=== PATIENT | male | born 1950 | race Caucasian/White ===

== ENCOUNTER 2016-05-31 02:51 | Inpatient (IN) | payer MEDICARE, OTHER ==
[2016-05-31] VITALS (8 sets, daily range): BP systolic 129–183; BP diastolic 66–112
[~2016-05-31] VITALS: Ht 172.7 cm; Wt 57.3 kg
--- OUTSIDE RECORDS SUMMARY | 2016-05-31 02:56 | XMS REPORT | Continuity of Care Document ---
Author Author [facility] Organization [facility] Address Unknown Phone Unavailable Care Team Providers Care Yoga Teacher Name Role Phone Joshua Deondre PCP [phone] Source Comments Some departments are not documenting in the electronic medical record. If you do not see the information that you expected, contact Release of Information in the Health Information Management department at [phone] for further assistance in locating additional records.[facility] Active Allergies and Adverse Reactions No Known Allergies Current Medications Prescription Sig. Disp. Refills Start End Date Status Date ALBUTEROL IN Inhale by mouth As Needed 06/10/19 Active 08 ATENOLOL PO Take by mouth. Ordered Active daily Patient stopped taking because he feels he can take it prn LYRICA PO Take by mouth As Needed Active morphine IR (MS IR) 15 mg Take 1-3 Tabs by mouth 150 0 03/05/20 Active tablet Every 2 Hours as needed 08 for Pain. docusate (COLACE) 100 mg Take 1 Cap by mouth Twice 60 1 03/05/20 Active capsule Daily. 08 morphine SR (MS CONTIN) Take 2 Tabs by mouth 82 0 03/05/20 Active 15 mg tablet Every 8 Hours. 08 Active Problems Problem Noted Date Degenerative disc disease 03/05/2008 Scoliosis (and kyphoscoliosis), idiopathic 02/23/2008 Cervical spinal stenosis 05/03/2007 Coagulation defects complicating , childbirth, or the puerperium, 05/03/2007 unspecified as to episode of care or not applicable(649.30) Social History Tobacco Use Types Packs/Day Years Used Date Never Assessed Last Filed Vital Signs Vital Sign Reading Time Taken Blood Pressure 153/94 03/05/2008 5:00 AM CDT Pulse 94 03/05/2008 5:00 AM CDT Temperature 37.3 C (99.1 F) 03/05/2008 5:00 AM CDT Respiratory Rate - - Height 1.753 m (5' 9") 02/27/2008 8:30 PM CDT Weight 66 kg (145 lb 8.1 oz) 02/27/2008 8:30 PM CDT Body Mass Index 21.48 02/27/2008 8:30 PM CDT Oxygen Saturation 93% 03/05/2008 1:05 PM CDT Plan of Care Health Maintenance Due Date Last Done Comments Physical (Comprehensive) 1959 Exam Pertussis Vaccine 1963 Tetanus Vaccine 1969 Colorectal Cancer 2002 Screening Shingles Vaccine 2012 Influenza Vaccine 01/30/2016 Results from Last 3 Months Not on file
--- OUTSIDE RECORDS SUMMARY | 2016-05-31 02:56 | XMS REPORT | Continuity of Care Document ---
Author Author [facility] Organization [facility] Address Unknown Phone Unavailable Care Team Providers Care Casino Host Name Role Phone Joshua Deondre PCP [phone] Source Comments Some departments are not documenting in the electronic medical record. If you do not see the information that you expected, contact Release of Information in the Health Information Management department at [phone] for further assistance in locating additional records.[facility] Active Allergies and Adverse Reactions No Known [...]
[2016-05-31] MEDS ORDERED: ALBUTEROL/IPRATROPIUM 3MG-0.5MG/3ML (DUONEB) NEB VIAL INH ONE (03:10)
[2016-05-31] MEDS ORDERED: PRED20TA PO (03:13)
[2016-05-31] MEDS ORDERED: DOXY100C2 PO (03:13)
[2016-05-31] MEDS ORDERED: LOSA100T8 PO (03:13)
[2016-05-31] MEDS ORDERED: ALBU8.5H2 IH (03:13)
[2016-05-31] MEDS ORDERED: ALB0.5V INH (03:13)
[2016-05-31] MEDS ORDERED: MORP30TA PO (03:13)
--- NOTE | 2016-05-31 03:16 | NUR ---
HAS UMB HERNIA AND INGUINAL HERNIA ON R SIDE, HURTS WHEN HE COUGHS
[2016-05-31] MEDS: SODIUM CHLORIDE FLUSH 10 ML SYR IV PRN ×4 (03:27→18:41)
[2016-05-31 03:35] LABS: MEAN CORPUSCULAR VOLUME 90 FL (80-100); MEAN PLATELET VOLUME 8.7 FL (6.0-9.5); PLATELET COUNT 440 10^3uL (150-450); WHITE BLOOD COUNT 12.22 10^3uL (4.0-11.0)
[2016-05-31 03:44] LABS: ALBUMIN 4.2 g/dL (3.4-5.0); ANION GAP 14.4 MEQ/L (3-15)
[2016-05-31 03:47] LABS: BAND NEUTROPHILS % 0 % (0-6); LYMPHOCYTES # 1.5 #; MEAN CORPUSCULAR HEMOGLOBIN 32.1 PG (26.0-34.0); MEAN CORPUSCULAR HGB CONC 35.8 g/dL (31.0-37.0); MONOCYTES # 1.7 #; MONOCYTES % 14 % (3-11); SEGMENTED NEUTROPHILS % 73 % (51-67)
[2016-05-31 03:48] LABS: EOSINOPHILS % 1 % (0-4); RBC MORPH NORMAL (NORMAL); TOTAL CELLS COUNTED 100
--- NOTE | 2016-05-31 05:00 | NUR ---
DR PUENTES NOTIFIED PER DR HOPPER POSSIBLE ADMIT
[2016-05-31] MEDS ORDERED: HYDROcodone/APAP 5 MG/325 MG (NORCO) TAB PO ONE (05:15)
[2016-05-31] MEDS ORDERED: HYDROmorphone 2 MG/ML (DILAUDID) 1 ML SYRINGE IV ONE (05:15)
--- NOTE | 2016-05-31 05:19 | NUR ---
NOTIFIED ORDERLIES TEACHER OF PT ADMIT
[2016-05-31] MEDS ORDERED: ONDANSETRON 2 MG/ML (Z0FRAN) 2 ML VIAL IV ONE (05:20)
[2016-05-31] MEDS ORDERED: ONDANSETRON 2 MG/ML (Z0FRAN) 2 ML VIAL ONE (05:20)
--- NOTE | 2016-05-31 05:38 | NUR ---
Pt arrived to room 317 via wheelchair, accompanied by Diane VUONG. Alert and oriented x4, Resp are slightly labored, SOA with exertion, diminished bases bilaterally. HRRR, BS are active x 4 quadrant. SL to left wrist, no redness, swelling, or s/s of infection noted at this time. Pt reports he has been helping a neighbor pack, and he started becoming short of air, took a neb treatment at home and it did not help, so he came in to the ER. Denies pain or discomfort at this time. Currently resting in bed asleep, call light in reach, will continue to monitor.
--- NOTE | 2016-05-31 07:40 | Diagnostic Imaging Report ---
INDICATION: Shortness of breath Portable chest 3:40 AM Heart size and pulmonary vascularity are normal. Lungs are clear. There are no effusions or pneumothoraces. IMPRESSION: No acute abnormalities in the chest Dictated by: Dictated on workstation # [id number]
--- NOTE | 2016-05-31 07:48 | History and Physical (E) ---
History & Physical PCP: Richard Castellano MD CC Dyspnea HPI Mr. Biggs is a 65 year old male who presents to the ED overnight with a week history of shortness of air and dyspnea. He has a history of emphysema. The patient states that he has been cleaning out a home that had a lot of pets ( cats, rabbits, etc...) and this has worsened his breathing situation. He is reporting a persistent cough that is productive of clear sputum. He was evaluated this week for his respiratory conditions and started on doxycycline. However this weekend he has continued to worsen. Overnight he woke up and used his albuterol nebulizer with minimal relief. He also used his albuterol inhaler with little improvement, therefore he called EMS to bring him into the ED. In the ED, his sats were found to be in the upper 80's to low 90's. CXR did not show any pneumonia. WBC's were mildly elevated. No other abnormalities noted. Admission was requested. Upon arrival to the floor, the patient the patient is in pain, he is wanting his narcotics for his back pain. He is on oxygen on the floor. He is asking for a nicotine patch. He reports a lot of stress which has led to increased smoking. He is also reporting fatigue from being up all night. PMH Chronic pain (morphine) COPD (albuterol and prednisone) HTN (losartan) PSH Back surgery x 7 Splenectomy Appendectomy Partial nephrectomy These surgeries were due to football injuries. ALLERGIES: NKDA Please see list at end of report. HOME MEDICATIONS: Albuterol Sulfate 2.5 MG INH PRN Albuterol Sulfate HFA 8.5 GM IH BID Doxycycline 100 MG PO BID--recently prescribed by Dr. Castellano. Losartan 100 MG PO DAILY Morphine 30 MG PO TID Prednisone 20 MG PO UD--recently prescribed by Dr. Castellano Please see list at end of report. FH Parents--Father with heart disease. Mother of an aneurysm. Siblings--Brother from an MT. Sister is alive and healthy. Children--Healthy SH Tobaccoism--1ppd. Patient is trying to stop smoking. Started smoking age 19. Alcohol use--None. Living situation--Home with . One robbins retriever at home. Pigs at home. Chickens, cat and a duck. 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 Moved back to [place] in the . CODE STATUS Full code. ROS CONSTITUTION: Denies weight loss or gain. Denies fever or chills. HEENT: No change in vision or hearing. No sores in mouth, sore throat. CV: No chest pain, palpitations. PULM: Cough, SOA, and dyspnea per HPI. GI: No upset stomach, nausea, vomiting, constipation, or diarrhea. No blood in stool. : No dysuria. No blood in urine. MS: Patient has chronic pain, but lately has had feet and leg cramps. Also some side cramps. This has been happening more with coughing. NEURO: No numbness or tingling. No weakness. INTEG: No rashes, lesions, or sores. ENDO: Cold intolerance with illness. HEME/LYMPH: No easy bruising or bleeding. No swollen glands. PSYCH: No change in mood or behavior. Increased stress, has led to some stress , he did discuss with Dr. Castellano who prescribed SSRI, that the patient did not like. OBJECTIVE Vital Signs Date Time Temp Pulse Resp B/P Pulse Ox O2 Delivery O2 Flow Rate FiO2 05/31/16 06:08 97.9 87 18 92 Room air 05/31/16 03:30 1.5 05/31/16 02:52 178/95 GEN: Awake and alert. Mild respiratory distress. HEENT: EOMI, PERRL, moist oral mucosa. Nasal cannula in place. CV: RRR. LUNGS: Diminished throughout, expiratory wheezing. Mildly labored respirations. ABD: Normal bowel sounds. Soft. Mildly tender to palpation. EXTR: No edema to extremities. INTEG: No rash. NEURO: No focal motor neuro deficit. LABS CBC BMP Last 24 Hrs 05/31/16 03:15 Laboratory Results Past 24 Hrs 05/31/16 03:15: Absolute Band Neutrophils 0.0, Alanine Aminotransferase (ALT/SGPT) 34, Albumin 4.2, Albumin/Globulin Ratio 1.500, Alkaline Phosphatase 73, Anion Gap 14.4, Aspartate Amino Transf (AST/SGOT) 38, BUN/Creatinine Ratio 27, Band Neutrophils % 0, Basophils # (Auto) , Basophils # (Manual) 0.0, Basophils % (Manual) 0, Basophils (%) (Auto) , Blood Morphology Comment Normal, Blood Urea Nitrogen 15, Calcium Level 9.1, Calcium/Ionized Calcium Ratio 4.0, Calculated Osmolality 259 , Carbon Dioxide Level 27, Chloride Level 96, Creatinine 0.55, Differential Total Cells Counted 100, Eosinophils # 0.1, Eosinophils # (Auto) , Eosinophils % (Manual) 1, Eosinophils (%) (Auto) , Estimat Glomerular Filtration Rate 182.0 , Estimated GFR (Non- 150.5, Glucose Level 107, Hematocrit 39.10 , Hemoglobin 14.0, Lymphocytes # 1.5, Lymphocytes # (Auto) , Lymphocytes % ( Manual) 12, Lymphocytes (%) (Auto) , Mean Corpuscular Hemoglobin 32.1, Mean Corpuscular Hemoglobin Concent 35.8, Mean Corpuscular Volume 90, Mean Platelet Volume 8.7, Monocytes # 1.7, Monocytes # (Auto) , Monocytes % (Manual) 14, Monocytes (%) (Auto) , IK-Xnk-M-Type Natriuretic Peptide 408, Neutrophils # 8.9 , Neutrophils # (Auto) , Neutrophils (%) (Auto) , Platelet Count 440, Potassium Level 4.5, Prothromb Time International Ratio 1.0, Prothrombin Time 11.1, Red Blood Count 4.36, Red Cell Distribution Width 14.1, Segmented Neutrophils % 73, Sodium Level 133, Total Bilirubin 0.5, Total Protein 7.0, White Blood Count 12.22 05/31/16 05:07: Adenovirus (PCR) Negative, Bordetella parapertussis DNA (PCR) Negative, Chlamydophila pneumoniae (PCR) Negative, Coronavirus Type 229E (PCR) Negative, Coronavirus Type HKU1 (PCR) Negative, Coronavirus Type NL63 (PCR) Negative, Coronavirus Type OC43 (PCR) Negative, Enterovirus/Rhinovirus (PCR) Negative, Human Metapneumovirus (PCR) Negative, Influenza Type A (H1) (PCR) Negative, Influenza Virus Type B (PCR) Negative, Mycoplasma pneumoniae (PCR) Negative, Parainfluenza Type 1 (PCR) Negative, Parainfluenza Type 2 (PCR) Negative, Parainfluenza Type 3 (PCR) Negative, Parainfluenza Type 4 (PCR) Negative, Respiratory Syncytial Virus (PCR) Positive MICRO None IMAGING 05.31.16 CXR Evidence of COPD. No evidence of pneumonia. Awaiting formal read. ASSESSMENT/PLAN URI Positive for RSV. Supportive measures. Continue duonebs, albuterol, doxy and prednisone. Will add guaifenesin for cough and phenergan with codeine. Acute hypoxic respiratory failure Currently requiring oxygen. Due to URI with COPD exacerbation. COPD exacerbation Due to URI. At home has been on albuterol, prednisone and doxycycline. Will add QID duonebs and continue prn albuterol. Continue steroids and doxy here. Adding guaifenesin for cough and phenergan with codeine. History of heart disease in family, will get a troponin. Anxiety and depression I believe this is chronic for this patient, however this was attempted to be treated by PCP, the patient did not like side effects of the medication. Will provide ativan here for anxiety to help with breathing. Chronic pain Due to multiple back surgeries. Continue home morphine and norco. HTN Continue home losartan. Gave a prn hydralazine for SBP's, however patient had an adverse reaction of anxiety and shortness of air. Will use metoprolol in the future. Systolic and diastolic CHF LVEF 45-50%, seen on echo done in 2014. FEN No fluids at this time. Mild hyponatremia. Monitor closely. Diet as tolerated. Code status Full code. DVT proph Ambulation. Dispo Inpatient as patient is requiring oxygen at this time. Allergies/Home Medications Allergies: Coded Allergies: No Known Allergies (Verified Allergy, Unknown, 05/31/16) Reported Home Medications Scheduled Albuterol Sulfate (Albuterol Sulfate) 2.5 MG INH NEEDED (Reported) Albuterol Sulfate (Proair HFA) 8.5 GM IH BID (Reported) Doxycycline Hyclate (Doxycycline Hyclate) 100 MG PO BID (Reported) Losartan Potassium (Losartan Potassium) 100 MG PO DAILY (Reported) Morphine Sulfate (Morphine) 30 MG PO TID (Reported) Prednisone (Prednisone) 20 MG PO UD (Reported) Copies to: End of Report . SAMANTA PUENTES MD May 31, 2016 07:48
--- NOTE | 2016-05-31 08:35 | NUR ---
Morphine Er 30 mg given po for pain per request. c/o abd pain related to frequent coughing, and lower back pain - chronic. Pain 9/10. States resp. are "tighter" and is having more trouble breathing. O2 sats 94%.
[2016-05-31] MEDS: morphine ER 30 MG (MS CONTIN) TAB PO SCH ×3 (08:37→18:21)
--- NOTE | 2016-05-31 09:00 | NUR ---
continues to complain of pain. States needs Hydrocodone usually takes at home. States pain 02/07. BP - 167/107. pulse - 95, O2 sat - 94%. Dr. Bills texted above info.
--- NOTE | 2016-05-31 09:35 | NUR ---
"Can't breathe - when are they going to do something" - VS 98.3 - 181/103 - 99 - 20 )2 sat 93% - "I've never had this before my breathing"
[2016-05-31] MEDS: ALBUTEROL/IPRATROPIUM 3MG-0.5MG/3ML (DUONEB) NEB VIAL INH SCH ×3 (09:47→20:03)
[2016-05-31] MEDS ORDERED: hydrALAZINE 20 MG/ML (APRESOLINE) 1 ML VIAL IV ONE (09:50)
--- NOTE | 2016-05-31 09:50 | NUR ---
c/o cramps to daniel low back and in abdomen - "Oh God it is so sharp and excruciating when they hit" - LS dim throughout on inspiration and expiration - prolonged expirations with expiratory wz throughout
--- NOTE | 2016-05-31 09:52 | NUR ---
RT TX dueneb in progress
--- NOTE | 2016-05-31 09:56 | NUR ---
Reports "breathing better" - "gotta calm down" - pain of cramps "10" when coughs
--- NOTE | 2016-05-31 09:58 | NUR ---
Dr Bills in room
[2016-05-31] MEDS: DOXYCYCLINE 100 MG (VIBRAMYCIN) TABLET PO SCH ×2 (10:02→22:06)
[2016-05-31] MEDS: HYDROcodone/APAP 10 MG/325 MG (NORCO) TAB PO PRN ×4 (10:03→22:22)
--- NOTE | 2016-05-31 10:05 | NUR ---
Lortab 10mg 1 tab po for cramping pain "I only want to take 1 tab right now" - vibramycin po now dose
--- NOTE | 2016-05-31 10:12 | NUR ---
[id number] Apresoline 20 mg slow IV push over 3 minutes - follow by 10 mL flush
--- NOTE | 2016-05-31 10:22 | NUR ---
BP 183/99 - Dr Bills remains in room - "I can't breathe" - RT called for albuterol TX
[2016-05-31] MEDS ORDERED: meTOprolol 5 MG/5 ML (LOPRESSOR) VIAL IV PRN (10:25)
[2016-05-31] MEDS: ALBUTEROL 0.083% NEB SOLUTION 2.5 MG/3 ML VIAL INH PRN (10:26)
--- NOTE | 2016-05-31 10:30 | NUR ---
RT TX in progress
--- NOTE | 2016-05-31 10:36 | NUR ---
168/92 - O2 sat 96% on 3 L per nc c humidification
--- NOTE | 2016-05-31 10:37 | NUR ---
"I can't breathe" - "I feel like I am going to pass out" - "I'm going to take this other pain pill" - Lortab 10 mg 1 tab po for c/o cramping pain
[2016-05-31] MEDS: LORazepam 2 MG/ML (ATIVAN) 1 ML VIAL IV PRN ×2 (10:43→18:40)
--- NOTE | 2016-05-31 10:54 | NUR ---
Ativan 0.5 mg slow IV push over 3 minutes for anxiety
--- NOTE | 2016-05-31 11:00 | NUR ---
Sitting on bed edge leaning on bed side table - eyes closed - "a little better" - telemetry applied - O2 sat 96% on 3 L per nc
--- NOTE | 2016-05-31 11:55 | NUR ---
Asleep lying on L side c HOB up 45 degrees - Telemetry ST rate 100-110s
--- NOTE | 2016-05-31 14:38 | NUR ---
Hydrocodone 10 mg 2 tabs given for pain 10/07. C/o COTTER, and back pain. Slept awhile after lunch.
[2016-05-31] MEDS ORDERED: ACHYD1T PO (14:58)
[2016-05-31] MEDS ORDERED: MORP30TA60 PO (14:59)
--- NOTE | 2016-05-31 15:08 | NUR ---
Medication reconciliation completed using pill bottles from [facility] and information from Rasheeda who read some bottles to me from home.
[2016-05-31] MEDS: GUAIFENESIN 200 MG PO PRN (15:42)
--- NOTE | 2016-05-31 18:30 | NUR ---
Hydrocodone 10 mg 2 tabs given for COTTER pain - 01/07. Asking for a heating pad for neck. also states uses Ensure at home. She is wondering if a nicoderm patch would be a good idea. states is going to throw away his cigarettes at home.
[2016-05-31] MEDS: NICOTINE 21 MG (NICODERM) PATCH TD SCH (22:06)
[2016-05-31] MEDS: PROMETHAZINE/CODEINE SYRUP 6.25MG-10MG/5ML (PHENERGAN W/COD) UDC PO PRN (22:21)
[2016-06-01 00:16] VITALS: BP 120/68
[2016-06-01] MEDS: LORazepam 2 MG/ML (ATIVAN) 1 ML VIAL IV PRN ×3 (02:04→18:10)
[2016-06-01] MEDS: SODIUM CHLORIDE FLUSH 3 ML SYR IV PRN ×5 (02:09→18:11)
[2016-06-01] MEDS: HYDROcodone/APAP 10 MG/325 MG (NORCO) TAB PO PRN ×2 (02:39→06:49)
[2016-06-01] MEDS: ALBUTEROL/IPRATROPIUM 3MG-0.5MG/3ML (DUONEB) NEB VIAL INH SCH ×4 (02:50→20:31)
--- NOTE | 2016-06-01 03:20 | NUR ---
Pt c/o of increasing pain and difficulty breathing. Have exhausted PRNs. Dr Bills notified; orders received.
[2016-06-01] MEDS: SODIUM CHLORIDE FLUSH 10 ML SYR IV PRN ×2 (03:30→21:29)
[2016-06-01] MEDS: morphine INJ 4 MG/ML 1 ML SYRINGE IV PRN ×3 (03:30→15:50)
[2016-06-01 04:23] VITALS: BP 138/70
[2016-06-01] MEDS: GUAIFENESIN 200 MG PO PRN (05:35)
[2016-06-01] MEDS: morphine ER 30 MG (MS CONTIN) TAB PO SCH ×3 (05:35→21:29)
--- NOTE | 2016-06-01 06:02 | NUR ---
Pt is able to breathe easier after 4mg IV morphine given per PRN order. Resp still labored on 3L oxygen per nc, but pt states that he feels a "little bit better." SL intact.
[2016-06-01 06:30] LABS: MEAN CORPUSCULAR HGB CONC 34.3 g/dL (31.0-37.0); MEAN CORPUSCULAR VOLUME 93 FL (80-100); MEAN PLATELET VOLUME 9.1 FL (6.0-9.5); PLATELET COUNT 412 10^3uL (150-450); WHITE BLOOD COUNT 10.47 10^3uL (4.0-11.0)
[2016-06-01 06:45] LABS: ALBUMIN 3.7 g/dL (3.4-5.0); ANION GAP 13.2 MEQ/L (3-15); CALCULATED IONIZED CALCIUM 4.3 mg/dL (3.8-4.6); TOTAL PROTEIN 6.1 g/dL (6.4-8.5)
[2016-06-01 07:27] LABS: MEAN CORPUSCULAR HEMOGLOBIN 31.8 PG (26.0-34.0)
[2016-06-01 07:38] LABS: BAND NEUTROPHILS % 0 % (0-6); SEGMENTED NEUTROPHILS % 69 % (51-67)
[2016-06-01 07:39] LABS: EOSINOPHILS % 0 % (0-4); LYMPHOCYTES # 1.1 #; MONOCYTES # 1.8 #; MONOCYTES % 18 % (3-11); RBC MORPH NORMAL (NORMAL); TOTAL CELLS COUNTED 100
[2016-06-01 08:07] VITALS: BP 145/89
[2016-06-01] MEDS: DOXYCYCLINE 100 MG (VIBRAMYCIN) TABLET PO SCH ×2 (09:53→21:29)
[2016-06-01] MEDS: NICOTINE 21 MG (NICODERM) PATCH TD SCH (09:54)
--- NOTE | 2016-06-01 10:00 | NUR ---
Reports back pain continues at 8:10. Requests more pain med. Informed to early for more pain med. Warm blanket to back offered and accepted.
--- NOTE | 2016-06-01 10:19 | NUR ---
NUTRITION ASSESSMENT Level 1 Patient: Bernabe Biggs Age/Sex: 65/M Date Screened: 06-01-16 Weight: 121.4#/55.2 kg Height: 68 inches Primary Diagnosis: COPD Diet Order: regular Relevant labs: sodium 132, glucose 100 Food allergies: N Nutrition Assessment Criteria Age over 80: N Body Mass Index (BMI) under 19: 6 points Admission Screening Indicates Risk? N Moderate/High Risk Diagnosis: 3 points TPN or PPN: N NPO or clear liquid diet: N Serum Glucose <70 or >180: N Hgb A1c >6.7: N/A Total: 9 points Risk Screen: __ Patient at low nutritional risk based on available data; reevaluate in 5-7 days __ Patient at moderate nutritional risk based on available data; reevaluate in 3-5 days _X_ Patient at high nutritional risk; complete Nutrition Assessment within 48 hours of admission.
--- NOTE | 2016-06-01 10:50 | NUR ---
Attempted to give pain med. Tylenol level reached and no med given.Dr. Guzman notified of patient's uncontrolled pain. Patient and his spouse informed will be in to see him and discuss pain control.
--- NOTE | 2016-06-01 11:11 | NUR ---
Patient request med for anxiety. States when he is in pain he becomes anxious. Amb about room. Med given.
--- NOTE | 2016-06-01 11:41 | NUR ---
Resting with eyes closed.Resp regular. Calm. Spouse at bedside.
[2016-06-01 11:48] VITALS: BP 159/84
--- NOTE | 2016-06-01 14:04 | NUR ---
States feel like he can't get his breath.Pain debbie was given for back pain as scheduled. O2 sat 95% on 2l/NC. p- 115. Lungs wheezes bilat. Amb from bed to chair. Sitting up in chair at this time. RT notified. Patient informed RT in ED at this time but was made aware of his complaint.
--- NOTE | 2016-06-01 14:35 | NUR ---
States still can't get deep breath. Resp 20. SKin w/p/d. Resp at bedside.
[2016-06-01 15:29] VITALS: BP 128/83
[2016-06-01 19:43] VITALS: BP 169/71
[2016-06-01] MEDS ORDERED: MAGNESIUM 1 GM/100 ML IVPB 100 ML IV ONE (20:15)
--- NOTE | 2016-06-01 20:24 | Progress Note (E) ---
Progress Note SUBJECTIVE Improving but slowly. Remains afebrile. Tachy at times. Oxygen remains at 2 L. 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 Much dust/dirt and foul odors in the home along with much cat waste. Discussed this as a likely trigger for his symptoms and advised he not work in that environment without a respiratory. OBJECTIVE Vital Signs Date Time Temp Pulse Resp B/P Pulse Ox O2 Delivery O2 Flow Rate FiO2 06/01/16 19:43 99.1 108 18 169/71 94 Room air 05/31/16 03:30 1.5 I & O 05/31/16 06/01/16 Cumulative From/Thru 19:00 07:00 05/31/16 02:52 - 06/01/16 06:14 Intake Total 400 ml 1187 ml 1587 ml Output Total 600 ml 1600 ml 2800 ml Balance -200 ml -413 ml -1213 ml GEN: Tired appearing but oriented, Speaks in short sentences. HEENT: EOMI, clear sclerae, mildly dry oral mucosa. CV: Tachy without significant murmur. PULM: Tight with expiratory wheezes. ABD: Flat, soft, NT/ND with normal bowels ounds. EXTR: Warm, dry, well-perfused. INTEG: Age related changes. NEURO: No focal motor neuro deficit. Lab-Past 14 Days, 35 Results 05/31/16 03:15: Absolute Band Neutrophils 0.0, Alanine Aminotransferase (ALT/SGPT) 34, Albumin 4.2, Albumin/Globulin Ratio 1.500, Alkaline Phosphatase 73, Anion Gap 14.4, Aspartate Amino Transf (AST/SGOT) 38H, BUN/Creatinine Ratio 27H, Band Neutrophils % 0, Basophils # (Auto) , Basophils # (Manual) 0.0, Basophils % ( Manual) 0, Basophils (%) (Auto) , Blood Morphology Comment Normal, Blood Urea Nitrogen 15, Calcium Level 9.1, Calcium/Ionized Calcium Ratio 4.0, Calculated Osmolality 259L, Carbon Dioxide Level 27, Chloride Level 96L, Creatinine 0.55L, Differential Total Cells Counted 100, Eosinophils # 0.1, Eosinophils # (Auto) , Eosinophils % (Manual) 1, Eosinophils (%) (Auto) , Estimat Glomerular Filtration Rate 182.0, Estimated GFR (Non- 150.5, Glucose Level 107, Hematocrit 39.10, Hemoglobin 14.0, Lymphocytes # 1.5, Lymphocytes # (Auto) , Lymphocytes % (Manual) 12L, Lymphocytes (%) (Auto) , Mean Corpuscular Hemoglobin 32.1, Mean Corpuscular Hemoglobin Concent 35.8, Mean Corpuscular Volume 90, Mean Platelet Volume 8.7, Monocytes # 1.7, Monocytes # (Auto) , Monocytes % (Manual) 14H, Monocytes (%) (Auto) , YX-Miu-M-Type Natriuretic Peptide 408H, Neutrophils # 8.9, Neutrophils # (Auto) , Neutrophils (%) (Auto) , Platelet Count 440, Potassium Level 4.5, Prothromb Time International Ratio 1.0, Prothrombin Time 11.1, Red Blood Count 4.36L, Red Cell Distribution Width 14.1, Segmented Neutrophils % 73H, Sodium Level 133L, Total Bilirubin 0.5#, Total Protein 7.0, Troponin I 0.015, White Blood Count 12.22H 05/31/16 05:07: Adenovirus (PCR) Negative, Bordetella parapertussis DNA (PCR) Negative, Chlamydophila pneumoniae (PCR) Negative, Coronavirus Type 229E (PCR) Negative, Coronavirus Type HKU1 (PCR) Negative, Coronavirus Type NL63 (PCR) Negative, Coronavirus Type OC43 (PCR) Negative, Enterovirus/Rhinovirus (PCR) Negative, Human Metapneumovirus (PCR) Negative, Influenza Type A (H1) (PCR) Negative, Influenza Virus Type B (PCR) Negative, Mycoplasma pneumoniae (PCR) Negative, Parainfluenza Type 1 (PCR) Negative, Parainfluenza Type 2 (PCR) Negative, Parainfluenza Type 3 (PCR) Negative, Parainfluenza Type 4 (PCR) Negative, Respiratory Syncytial Virus (PCR) Positive*A 06/01/16 05:55: Absolute Band Neutrophils 0.0, Alanine Aminotransferase (ALT/SGPT) 34, Albumin 3.7, Albumin/Globulin Ratio 1.541, Alkaline Phosphatase 66, Anion Gap 13.2, Aspartate Amino Transf (AST/SGOT) 33, BUN/Creatinine Ratio 32H, Band Neutrophils % 0, Basophils # (Auto) , Basophils # (Manual) 0.0, Basophils % ( Manual) 0, Basophils (%) (Auto) , Blood Morphology Comment Normal, Blood Urea Nitrogen 19H, Calcium Level 9.0, Calcium/Ionized Calcium Ratio 4.3, Calculated Osmolality 258L, Carbon Dioxide Level 28, Chloride Level 96L, Creatinine 0.59L, Differential Total Cells Counted 100, Eosinophils # 0.0, Eosinophils # (Auto) , Eosinophils % (Manual) 0, Eosinophils (%) (Auto) , Estimat Glomerular Filtration Rate 167.9, Estimated GFR (Non- 138.7, Glucose Level 100, Hematocrit 41.40, Hemoglobin 14.2, Lymphocytes # 1.1, Lymphocytes # (Auto) , Lymphocytes % (Manual) 11L, Lymphocytes (%) (Auto) , Mean Corpuscular Hemoglobin 31.8, Mean Corpuscular Hemoglobin Concent 34.3, Mean Corpuscular Volume 93, Mean Platelet Volume 9.1, Monocytes # 1.8, Monocytes # (Auto) , Monocytes % (Manual) 18H, Monocytes (%) (Auto) , Neutrophils # 7.2, Neutrophils # (Auto) , Neutrophils (%) (Auto) , Platelet Count 412, Potassium Level 5.0, Red Blood Count 4.47L, Red Cell Distribution Width 14.9, Segmented Neutrophils % 69H, Sodium Level 132L, Total Bilirubin 0.5, Total Protein 6.1L, White Blood Count 10.47, Atypical Lymphocytes 2 MICRO 05/31 Resp PCR Panel POSITIVE for RSV 05/31/16 CHEST 1 VIEW, AP/PA ONLY* INDICATION: Shortness of breath Portable chest 3:40 AM Heart size and pulmonary vascularity are normal. Lungs are clear. There are no effusions or pneumothoraces. IMPRESSION: No acute abnormalities in the chest ASSESSMENT Disha Biggs is a 65 year old male admitted from ED 05/31 with acute respiratory failure attributed to COPD with acute exacerbation and RSV URI. He met SIRS criteria on admit. PLAN * SIRS: Attributed to RSV URI and COPD exacerbation. * Acute Respiratory Failure: Treat underlying problems. Oxygen protocol. * COPD with Acute Exacerbation: Duoneb scheduled, albuterol PRN. Doxycycline. Methylprednisolone (not started until 06/01) with transition to prednisone. Guaifenesin. Magnesium 06/01 for persistent bronchospasm. Oxygen protocol. * Cough: Promethazine/codeine. * Hyponatremia: Attributed to lung disease. Monitor trend closely. Fluid restriction if not improving. * F/E/N: Regular. Peripheral IV. * Prophylaxis: Enoxaparin * Code Status: Full * Dispo: Inpatient expecting 3 day stay. CHRONIC ISSUES * Chronic Back Pain: MS Contin, hydrocodone/acetaminophen. Morphine IV for breakthrough pain. * Tobacco abuse: Nicotine patch. 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 * HTN: Losartan DISHA CABRERA MD Jun 01, 2016 20:24
--- NOTE | 2016-06-01 20:35 | NUR ---
Pt found sitting on the side of his bed right after returning from the toilet, he is visibly tachypneic and Dyspneic, SPO2 95% on 2 l/min NC, HR 115, RR 24 and labored. RR decreased to 18 by the time I started Duoneb via SVN. BS clear in bilat upper lobes and very diminished in bilateral lower lobes before and after Tx. RR and WOB returned to patients stated norm by the time Tx finished.
[2016-06-01] MEDS ORDERED: SODIUM CHLORIDE 0 ML ONE (21:17)
[2016-06-01] MEDS: methylPREDNISolone 125 MG (Solu-MEDROL) VIAL IV SCH (21:29)
[2016-06-02 00:49] VITALS: BP_SYST 132; BP_SYST 160; BP_DIAS 101; BP_DIAS 80
[2016-06-02] MEDS: ALBUTEROL/IPRATROPIUM 3MG-0.5MG/3ML (DUONEB) NEB VIAL INH SCH ×4 (02:01→20:13)
--- NOTE | 2016-06-02 02:04 | NUR ---
Pt found sleeping in bed. SPO2 95% on 2 l/min NC, HR 91, RR 14 and non labored, BS clear and diminished at this time before and after Duoneb via SVN.
[2016-06-02 04:21] VITALS: BP 128/69
[2016-06-02] MEDS: morphine ER 30 MG (MS CONTIN) TAB PO SCH ×3 (05:33→21:26)
--- NOTE | 2016-06-02 05:37 | NUR ---
Pt rests in long intervals throughout the night. Does c/o chronic back pain and pain from coughing this morning. Scheduled ms contin provided. SL intact. Resp even, slightly labored on 2L oxygen.
[2016-06-02 08:03] VITALS: BP 141/89
[2016-06-02] MEDS: HYDROcodone/APAP 10 MG/325 MG (NORCO) TAB PO PRN ×3 (08:14→17:44)
[2016-06-02] MEDS ORDERED: MAGNESIUM HYDROXIDE 80MG/ML (MILK OF MAGNESIA) 30 ML UDC PO PRN (09:50)
--- NOTE | 2016-06-02 09:52 | Progress Note (E) ---
Progress Note SUBJECTIVE Overnight, no major issues reported. No BM. Afebrile. 2 L NC. Reportedly rested well through the night. Tachypneic and dyspneic with any activity. Tolerating therapies thus far. No new labs today. Able to speak more easily today. Discussed findings, plan of care. OBJECTIVE Vital Signs Date Time Temp Pulse Resp B/P Pulse Ox O2 Delivery O2 Flow Rate FiO2 06/02/16 08:03 98.1 91 22 141/89 96 Nasal cannula 05/31/16 03:30 1.5 I & O 06/01/16 06/02/16 Cumulative From/Thru 19:00 07:00 05/31/16 02:52 - 06/02/16 06:00 Intake Total 1181 ml 350 ml 3118 ml Output Total 600 ml 1550 ml 4950 ml Balance 581 ml -1200 ml -1832 ml GEN: Tired appearing but oriented, Speaks in longer sentences. HEENT: EOMI, clear sclerae, mildly dry oral mucosa. CV: Tachycarida resolved. No significant murmur. PULM: Better air movement with end expiratory wheeze throughout. Improved compared to 06/02. ABD: Flat, soft, NT/ND with normal bowels ounds. EXTR: Warm, dry, well-perfused. INTEG: Age related changes. NEURO: No focal motor neuro deficit. Lab-Past 14 Days, 35 Results 05/31/16 03:15: Absolute Band Neutrophils 0.0, Alanine Aminotransferase (ALT/SGPT) 34, Albumin 4.2, Albumin/Globulin Ratio 1.500, Alkaline Phosphatase 73, Anion Gap 14.4, Aspartate Amino Transf (AST/SGOT) 38H, BUN/Creatinine Ratio 27H, Band Neutrophils % 0, Basophils # (Auto) , Basophils # (Manual) 0.0, Basophils % ( Manual) 0, Basophils (%) (Auto) , Blood Morphology Comment Normal, Blood Urea Nitrogen 15, Calcium Level 9.1, Calcium/Ionized Calcium Ratio 4.0, Calculated Osmolality 259L, Carbon Dioxide Level 27, Chloride Level 96L, Creatinine 0.55L, Differential Total Cells Counted 100, Eosinophils # 0.1, Eosinophils # (Auto) , Eosinophils % (Manual) 1, Eosinophils (%) (Auto) , Estimat Glomerular Filtration Rate 182.0, Estimated GFR (Non- 150.5, Glucose Level 107, Hematocrit 39.10, Hemoglobin 14.0, Lymphocytes # 1.5, Lymphocytes # (Auto) , Lymphocytes % (Manual) 12L, Lymphocytes (%) (Auto) , Mean Corpuscular Hemoglobin 32.1, Mean Corpuscular Hemoglobin Concent 35.8, Mean Corpuscular Volume 90, Mean Platelet Volume 8.7, Monocytes # 1.7, Monocytes # (Auto) , Monocytes % (Manual) 14H, Monocytes (%) (Auto) , LK-Ges-T-Type Natriuretic Peptide 408H, Neutrophils # 8.9, Neutrophils # (Auto) , Neutrophils (%) (Auto) , Platelet Count 440, Potassium Level 4.5, Prothromb Time International Ratio 1.0, Prothrombin Time 11.1, Red Blood Count 4.36L, Red Cell Distribution Width 14.1, Segmented Neutrophils % 73H, Sodium Level 133L, Total Bilirubin 0.5#, Total Protein 7.0, Troponin I 0.015, White Blood Count 12.22H 05/31/16 05:07: Adenovirus (PCR) Negative, Bordetella parapertussis DNA (PCR) Negative, Chlamydophila pneumoniae (PCR) Negative, Coronavirus Type 229E (PCR) Negative, Coronavirus Type HKU1 (PCR) Negative, Coronavirus Type NL63 (PCR) Negative, Coronavirus Type OC43 (PCR) Negative, Enterovirus/Rhinovirus (PCR) Negative, Human Metapneumovirus (PCR) Negative, Influenza Type A (H1) (PCR) Negative, Influenza Virus Type B (PCR) Negative, Mycoplasma pneumoniae (PCR) Negative, Parainfluenza Type 1 (PCR) Negative, Parainfluenza Type 2 (PCR) Negative, Parainfluenza Type 3 (PCR) Negative, Parainfluenza Type 4 (PCR) Negative, Respiratory Syncytial Virus (PCR) Positive*A 06/01/16 05:55: Absolute Band Neutrophils 0.0, Alanine Aminotransferase (ALT/SGPT) 34, Albumin 3.7, Albumin/Globulin Ratio 1.541, Alkaline Phosphatase 66, Anion Gap 13.2, Aspartate Amino Transf (AST/SGOT) 33, BUN/Creatinine Ratio 32H, Band Neutrophils % 0, Basophils # (Auto) , Basophils # (Manual) 0.0, Basophils % ( Manual) 0, Basophils (%) (Auto) , Blood Morphology Comment Normal, Blood Urea Nitrogen 19H, Calcium Level 9.0, Calcium/Ionized Calcium Ratio 4.3, Calculated Osmolality 258L, Carbon Dioxide Level 28, Chloride Level 96L, Creatinine 0.59L, Differential Total Cells Counted 100, Eosinophils # 0.0, Eosinophils # (Auto) , Eosinophils % (Manual) 0, Eosinophils (%) (Auto) , Estimat Glomerular Filtration Rate 167.9, Estimated GFR (Non- 138.7, Glucose Level 100, Hematocrit 41.40, Hemoglobin 14.2, Lymphocytes # 1.1, Lymphocytes # (Auto) , Lymphocytes % (Manual) 11L, Lymphocytes (%) (Auto) , Mean Corpuscular Hemoglobin 31.8, Mean Corpuscular Hemoglobin Concent 34.3, Mean Corpuscular Volume 93, Mean Platelet Volume 9.1, Monocytes # 1.8, Monocytes # (Auto) , Monocytes % (Manual) 18H, Monocytes (%) (Auto) , Neutrophils # 7.2, Neutrophils # (Auto) , Neutrophils (%) (Auto) , Platelet Count 412, Potassium Level 5.0, Red Blood Count 4.47L, Red Cell Distribution Width 14.9, Segmented Neutrophils % 69H, Sodium Level 132L, Total Bilirubin 0.5, Total Protein 6.1L, White Blood Count 10.47, Atypical Lymphocytes 2 MICRO 05/31 Resp PCR Panel POSITIVE for RSV 05/31/16 CHEST 1 VIEW, AP/PA ONLY* INDICATION: Shortness of breath Portable chest 3:40 AM Heart size and pulmonary vascularity are normal. Lungs are clear. There are no effusions or pneumothoraces. IMPRESSION: No acute abnormalities in the chest ASSESSMENT Disha Biggs is a 65 year old male admitted from ED 05/31 with acute respiratory failure attributed to COPD with acute exacerbation and RSV URI. He met SIRS criteria on admit. PLAN * SIRS: Attributed to RSV URI and COPD exacerbation. * Acute Respiratory Failure: Treat underlying problems. Oxygen protocol. * COPD with Acute Exacerbation: Duoneb scheduled, albuterol PRN. Doxycycline. Methylprednisolone (not started until 06/01) with transition to prednisone. Guaifenesin. Magnesium 06/01 for persistent bronchospasm. Oxygen protocol. * Cough: Promethazine/codeine. * Hyponatremia: Attributed to lung disease. Monitor trend closely. Fluid restriction if not improving. * F/E/N: Regular. Peripheral IV. * Prophylaxis: Enoxaparin * Code Status: Full * Dispo: Inpatient expecting 3 day stay. CHRONIC ISSUES * Chronic Back Pain: MS Contin, hydrocodone/acetaminophen. Morphine IV for breakthrough pain. * Tobacco abuse: Nicotine patch. Quantitative [employer] Head cessation. * HTN: Losartan DISHA CABRERA MD Jun 02, 2016 09:46
[2016-06-02] MEDS: methylPREDNISolone 125 MG (Solu-MEDROL) VIAL IV SCH ×2 (10:01→21:26)
[2016-06-02] MEDS: LOSARTAN 100 MG (COZAAR) TABLET PO SCH (10:01)
[2016-06-02] MEDS: DOXYCYCLINE 100 MG (VIBRAMYCIN) TABLET PO SCH ×2 (10:01→21:26)
[2016-06-02] MEDS: ENOXAPARIN 40 MG/0.4 ML (LOVENOX) SYR SC SCH (10:01)
[2016-06-02] MEDS: NICOTINE PATCH REMOVAL TOP SCH (10:03)
[2016-06-02] MEDS: NICOTINE 21 MG (NICODERM) PATCH TD SCH (10:04)
[2016-06-02] MEDS: DOCUSATE SODIUM 100 MG (COLACE) CAP PO PRN (10:07)
[2016-06-02] MEDS: morphine INJ 4 MG/ML 1 ML SYRINGE IV PRN (10:24)
[2016-06-02 11:48] VITALS: BP 163/89
[2016-06-02] MEDS: SODIUM CHLORIDE FLUSH 10 ML SYR IV PRN ×3 (13:59→23:13)
[2016-06-02] MEDS: LORazepam 2 MG/ML (ATIVAN) 1 ML VIAL IV PRN ×2 (13:59→23:13)
[2016-06-02 15:57] VITALS: BP 167/96
--- NOTE | 2016-06-02 16:07 | Physical Therapy Evaluation(E) ---
Plan of Care STG Time Frame: 2 Days Patient will demonstrate improved diaphragmatic and pursed lip breathing strategies. LTG Time Frame: 4 Days Goals Discussed/Agreed: Yes Plan: Gait & Transfer Training, Neuro Re-Education, Strengthening, Transfer Training, Therapy Excercise Discharge Recommendations: Home Independently Aware of Dx and Prognosis: Yes Aware of Risk & Benefit: Yes (Patient may benefit from additional rehabiltative services once discharged, however his reports his is fairly limited in what he can do secondary to his 7 back surgeries. ) To be Seen: Daily Wednesday-Wednesday Initial Evaluation Service Date/Time 06/02/16, 16:02 Primary Diagnosis: (1) Chronic obstructive pulmonary disease ICD Code: J44.9 (2) URI (upper respiratory infection) ICD Code: J06.9 Treatment Diagnosis: (1) Chronic obstructive pulmonary disease ICD Code: J44.9 Onset Date: 05/31/2016 Start of Care Date: Jun 02, 2016 Resuscitation Status: Full Code Precaution/Isolation: Standard Precautions Fall Level: Low Risk 25-50 Initial Assessment Reason for Rehab: Increase Strength, Increase Balance, Increase Transfers, Increase Endurance Medical History: Other (COPD, smoker 1 ppd, HTN, 7 back surgeries, nephrectomy , appy, splenetomy. ) Pain Location/Comment Patient reported back pain but did not rate level, it was not a limiting factor to function. Prior Level of Function Patient lives at home with his . 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 Independent with ADLS and ambulation. Rehabilitation Potential: Good (based on independent prior level of funciton. ) Distance Walked in Feet 88 feet without AD on 2L 02, HR 111bpm, 02 saturation 92-95%. Assist: Min Assist/Contact Guard Gait Description: Unsteady Gait Limitations: SOB ROM/Strength Hip Mobility: Right Hip Strength: 4+ Left Hip Strength: 4 Knee Flexion Mobility: Right Knee Flexion Strength: 4 Left Knee Flexion Strength: 4- Knee Extension Mobility: Right Knee Extension Strength: 4 Left Knee Extension Strength: 4 Ankle Mobility: Right Ankle Strength: 4 Left Ankle Strength: 4 Assessment/Goals Initial Transfer Assessment Sit-Supine: Supervision or setup Sitting Edge of Bed: Supervision or setup Supine-Sit: Not Assessed/NA Sit-Stand from Bed: Contact Guard Assist Stand-Sit: Contact Guard Assist Ambulation: Contact Guard Assist Distance Walked in Feet 88 feet on 2L 02. Comment Tinett score 9/12 on gait portion, and /16 standing portion for a total of 20/ 28. Transfer Short Term Goals Rolling: Modified [place] Sit-Supine: Modified [place] Sitting Edge of Bed: Modified [place] Supine-Sit: Modified [place] Sit-Stand from bed: Modified [place] Stand-Sit: Modified [place] Ambulation: Modified [place] Distance to Walk in Feet 150 feet x 2 with no 02 desaturation less than 90%. Transfer Prison Goals Ambulation: Complete [place] Distance to Walk in Feet A minimum of 300 feet without AD maintaining 02 saturation above 90%. Treatments Ambulation Assistive Device: None Gait Assist: Min Assist/Contact Guard Gait Description: Unsteady The patient was instructed on diaphragmatic and pursed lip breathing. Coding Time In: 1522 Time Out: 1557 Total Minutes: 35 Code & Unit: 24049 Eval< 30 min, 48280 Ther Activity Rehab G Codes Current Functional Status: [id number] Current Modifier: CJ 20% but <40% Projected Functional Goal: [id number] Goal Modifier: CJ 20% but <40% ZACH ARAGON PT Jun 02, 2016 16:07
--- NOTE | 2016-06-02 17:52 | NUR ---
BS coarse crackles in bases, exp. wheeze on L. Loose NPC. O2 @ 2L nc, 94%.
--- NOTE | 2016-06-02 18:00 | NUR ---
Patient continued to complain of pain in has back throughout the shift despite [place] every 4 hours and scheduled MC Contin. Additional IV morphine was administered but the patient said this was minimally helpful.
--- NOTE | 2016-06-02 20:14 | NUR ---
Pt found lying in bed on 2 l/min NC, SPO2 94%, HR 92, RR 18 and mildly labored. BS are clear and quite diminished throughout all lung garber before Duoneb, air movement slightly increased post Tx
[2016-06-02 20:23] VITALS: BP 146/85
[2016-06-02] MEDS: SODIUM CHLORIDE FLUSH 3 ML SYR IV PRN (23:13)
[2016-06-02] MEDS: PROMETHAZINE/CODEINE SYRUP 6.25MG-10MG/5ML (PHENERGAN W/COD) UDC PO PRN (23:13)
[2016-06-03] VITALS (7 sets, daily range): BP systolic 128–161; BP diastolic 62–88
--- NOTE | 2016-06-03 01:26 | NUR ---
Respiratory intervention held at Pt request to not wake him up.
[2016-06-03] MEDS: ALBUTEROL/IPRATROPIUM 3MG-0.5MG/3ML (DUONEB) NEB VIAL INH SCH ×5 (02:58→20:21)
--- NOTE | 2016-06-03 02:59 | NUR ---
Pt woke up and called for Tx, found Pt lying in bed on 2 l/min NC, SPO2 93%, HR 72, RR 16 and mildly labored with wheezes throughout all lung garber. Duoneb given via SVN. Wheezing slightly decreased post Tx.
[2016-06-03] MEDS: morphine INJ 4 MG/ML 1 ML SYRINGE IV PRN ×4 (03:10→22:06)
[2016-06-03] MEDS: SODIUM CHLORIDE FLUSH 10 ML SYR IV PRN (03:10)
[2016-06-03] MEDS: morphine ER 30 MG (MS CONTIN) TAB PO SCH ×3 (06:12→22:06)
[2016-06-03 06:27] LABS: MEAN CORPUSCULAR HEMOGLOBIN 30.5 PG (26.0-34.0); MEAN CORPUSCULAR HGB CONC 33.7 g/dL (31.0-37.0); MEAN CORPUSCULAR VOLUME 91 FL (80-100); PLATELET COUNT 423 10^3uL (150-450); WHITE BLOOD COUNT 8.56 10^3uL (4.0-11.0)
--- NOTE | 2016-06-03 06:28 | NUR ---
Pt rests in short intervals throughout the night. Utilizes ativan and phenergan w/codeine to facilitate rest. SL intact. Cont on 2L oxygen per nc.
[2016-06-03 06:47] LABS: ALBUMIN 3.4 g/dL (3.4-5.0); MAGNESIUM* 2.1 mg/dL (1.6-2.3); PHOSPHORUS 3.7 mg/dL (2.4-4.9)
[2016-06-03 07:16] LABS: BAND NEUTROPHILS % 0 % (0-6); EOSINOPHILS % 0 % (0-4); LYMPHOCYTES # 1.3 #; MONOCYTES # 0.8 #; MONOCYTES % 10 % (3-11); RBC MORPH NORMAL (NORMAL); SEGMENTED NEUTROPHILS % 75 % (51-67); TOTAL CELLS COUNTED 100
[2016-06-03] MEDS: HYDROcodone/APAP 10 MG/325 MG (NORCO) TAB PO PRN ×3 (08:27→21:01)
[2016-06-03] MEDS: NICOTINE 21 MG (NICODERM) PATCH TD SCH (08:27)
[2016-06-03] MEDS: predniSONE 20 MG (DELTASONE) TABLET PO SCH (08:27)
[2016-06-03] MEDS: LOSARTAN 100 MG (COZAAR) TABLET PO SCH (08:27)
[2016-06-03] MEDS: ENOXAPARIN 40 MG/0.4 ML (LOVENOX) SYR SC SCH (08:28)
[2016-06-03] MEDS: NICOTINE PATCH REMOVAL TOP SCH (08:28)
--- NOTE | 2016-06-03 08:34 | NUR ---
[place] 10mg 2 tabs given per request for c/o 02/07 back/neck pain. Pt remains on 2L nc. SPeaks in sentences, SOA at times.
[2016-06-03] MEDS: DOXYCYCLINE 100 MG (VIBRAMYCIN) TABLET PO SCH ×2 (08:36→21:01)
--- NOTE | 2016-06-03 09:20 | PT Daily Note Inpatient (E) ---
PT Daily Treatment Service Date/Time 06/03/16, 09:14 Medical Diagnosis: (1) Chronic obstructive pulmonary disease ICD Code: J44.9 (2) URI (upper respiratory infection) ICD Code: J06.9 Physical Therapy: (1) Chronic obstructive pulmonary disease ICD Code: J44.9 Precaution/Isolation: Standard Precautions Resuscitation Status: Full Code Fall Level: Low Risk 25-50 Subjective Pt in bed, reports he is ready to go home, would like to wash his hair and shave , agrees to ambulation Pain Level: 4 (back pain, chronic) Oxygen Delivery: Nasal cannula O2 liters/minute: 2L Transfers Supine-Sit: Complete [place] Sit-Stand from bed: Complete [place] Stand-Sit: Complete [place] Pivot Transfers: Supervision or setup (minimal unsteadiness with turn) Gait Ambulation: Contact Guard Assist (initially unsteady, after seated rest break pt steady with gait) Distance Walked: 2x120' Weight Bearing Status: Full Assistive Device: None Gait Assist: Min Assist/Contact Guard Gait Description: Unsteady (initially unsteady, gains steadiness with time), Decreased Cynthia, Slow, Flexed Trunk (fused spine, hips, painful ambulation) Gait Training: Limitations: Fatigue, Decreased Strength, Decreased Balance Education/Plan Education Education Needs: Pace Activity Assessment Pt fatigued easily, would benefit from skilled care, patient unlikely to agree to this as 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
--- NOTE | 2016-06-03 09:35 | NUR ---
Pt to shower indep on RA per Skye, RT- she wants to try to titrate O2. After shower, O2 sats on RA are 82%- Skye is giving breathing treatment, then placing back on 2L nc. Will cont to monitor O2 sats.
--- NOTE | 2016-06-03 09:56 | NUR ---
Morphine 4mg IV given at request for c/o back/neck pain rated 10/10. Pt very talkative and interactive with nursing staff. PLeasant.
--- NOTE | 2016-06-03 12:30 | NUR ---
Pt c/o back pain rated 8/10. [place] 10mg 2 tabs PO given now
--- NOTE | 2016-06-03 13:05 | NUR ---
Dr. Bills at bedside for rounding.
--- NOTE | 2016-06-03 13:39 | NUR ---
Pt ambulating halls for a second time today. Leticia Wren PT with patient.
--- NOTE | 2016-06-03 14:02 | PT Daily Note Inpatient (E) ---
PT Daily Treatment Service Date/Time 06/03/16, 13:59 Medical Diagnosis: (1) Chronic obstructive pulmonary disease ICD Code: J44.9 (2) URI (upper respiratory infection) ICD Code: J06.9 Physical Therapy: (1) Chronic obstructive pulmonary disease ICD Code: J44.9 Precaution/Isolation: Standard Precautions Resuscitation Status: Full Code Fall Level: Low Risk 25-50 Subjective pt up walking with nsg, PT took over at this point, pt states his back was hurting but now that he is up the pain has gone away Pain Level: 0 Oxygen Delivery: Nasal cannula O2 liters/minute: 2L Transfers Sit-Stand from bed: Complete [place] Stand-Sit: Complete [place] Gait Ambulation: Contact Guard Assist Distance Walked: 240', 120' Weight Bearing Status: Full Assistive Device: None Gait Assist: Min Assist/Contact Guard Gait Description: Decreased Cynthia, Slow, Flexed Trunk (secondary to spinal fusion) Gait Training: Limitations: Fatigue, Decreased Strength, Decreased Balance Education/Plan Education Education Needs: Breathing Technique Assessment Steady gait, endurance slowly improving, 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
[2016-06-03] MEDS: LORazepam 2 MG/ML (ATIVAN) 1 ML VIAL IV PRN (16:03)
[2016-06-03] MEDS ORDERED: PANTOPRAZOLE 20 MG (PROTONIX) TABLET PO ONE (16:30)
--- NOTE | 2016-06-03 17:05 | Progress Note-A/P (E) ---
Progress Note Subjective: Patient is resting in bed, somewhat dyspneic. at bedside. 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 Discussed current concerns with the patient including patient's stability. Discussed that he seems unstable when ambulating. Patient continues to require oxygen. Discussed discharge goals. Questions answered. Objective: Current Medications Albuterol Sulfate 0.083% Neb Solution 2.5 mg Q4H PRN INH Doxycycline 100 mg BID PO Acetaminophen/ Hydrocodone 10 Mg/ 325 Mg 2 ea Q4H PRN PO Lorazepam) 0.5 mg Q6H PRN IV Guaifenesin 400 mg Q4HR PRN PO Promethazine 5 ml HS PRN PO Nicotine 21 mg DAILY TD Morphine 30 mg Q8HR PO Morphine 4 mg Q4H PRN IV Prednisone 60 mg DAILY@0800 PO Losartan 100 mg DAILY PO Enoxaparin 40 mg Q24HR SC Polyethylene Glycol 17 gm DAILY PRN PO Docusate 100 mg BID PRN PO Magnesium Hydroxide 30 ml BID PRN PO Albuterol/ Ipratropium 3 ml RTQID INH Vital Signs Date Time Temp Pulse Resp B/P Pulse Ox O2 Delivery O2 Flow Rate FiO2 06/03/16 15:46 99.3 98 22 146/88 95 Nasal cannula 05/31/16 03:30 1.5 I & O Past 24 hrs 06/03/16 07:00 Intake Total 3007 ml Output Total 3450 ml Balance -443 ml Intake Oral 3007 ml Output Urine Total 3450 ml # Bowel Movements 1 Physical Exam General--Awake and alert. Mild distress. HEENT--Normocephalic. MMM in oral cavity. Nasal cannula in place. Lungs--Diminished bases bilaterally. Mildly labored respirations. Heart--RRR. No murmurs. Abdomen--Normal bowel sounds. Soft. Nondistended. Nontender. Extremities--No edema. Past 24 hour Lab Results 06/03/16 05:50 Laboratory Results Past 24 Hrs 06/03/16 05:50: Absolute Band Neutrophils 0.0, Albumin 3.4, Anion Gap 10.0, Band Neutrophils % 0 , Basophils # (Auto) , Basophils # (Manual) 0.0, Basophils % (Manual) 0, Basophils (%) (Auto) , Blood Morphology Comment Normal, Blood Urea Nitrogen 15, Calcium Level 8.5, Carbon Dioxide Level 30, Chloride Level 96, Creatinine 0.48, Differential Total Cells Counted 100, Eosinophils # 0.0, Eosinophils # (Auto) , Eosinophils % (Manual) 0, Eosinophils (%) (Auto) , Estimat Glomerular Filtration Rate 213.0, Estimated GFR (Non- 176.0, Glucose Level 153, Hematocrit 38.60, Hemoglobin 13.0, Lymphocytes # 1.3, Lymphocytes # (Auto) , Lymphocytes % (Manual) 15, Lymphocytes (%) (Auto) , Magnesium Level 2.1, Mean Corpuscular Hemoglobin 30.5, Mean Corpuscular Hemoglobin Concent 33.7, Mean Corpuscular Volume 91, Mean Platelet Volume 9.0, Monocytes # 0.8, Monocytes # ( Auto) , Monocytes % (Manual) 10, Monocytes (%) (Auto) , Neutrophils # 6.4, Neutrophils # (Auto) , Neutrophils (%) (Auto) , Phosphorus Level 3.7, Platelet Count 423, Potassium Level 4.5, Red Blood Count 4.26, Red Cell Distribution Width 13.9, Segmented Neutrophils % 75, Sodium Level 132, White Blood Count 8.56 Imaging Results 1.06.16 CXR IMPRESSION: No acute abnormalities in the chest Assessment/Plan SIRS Tachypnea and tachycardia persists, possibly chronic. Leukocytosis has resolved. Secondary to URI and COPD exacerbation. Treatment below. URI Positive for RSV. Supportive measures. Continue duonebs, albuterol, doxy and prednisone. Will add guaifenesin for cough and phenergan with codeine. Acute hypoxic respiratory failure Currently requiring oxygen. Due to URI with COPD exacerbation. Adding IS today. COPD exacerbation Due to URI. At home has been on albuterol, prednisone and doxycycline. Guaifenesin, steroids, QID duonebs and continue prn albuterol. Continue HS phenergan with codeine. Mag provided 1..17. Anxiety and depression Chronic for this patient, however this was attempted to be treated by PCP, the patient did not like side effects of the medication. Will provide ativan here for anxiety to help with breathing. Chronic pain Due to multiple back surgeries. Continue home morphine and norco. HTN Continue home losartan. Gave a prn hydralazine for SBP's, however patient had an adverse reaction of anxiety and shortness of air. Will use metoprolol in the future. Systolic and diastolic CHF LVEF 45-50%, seen on echo done in 2014. FEN No fluids at this time. Mild hyponatremia. Monitor closely. Diet as tolerated. Code status Full code. DVT proph Ambulation. Dispo Continues as inpatient due to hypoxia. Continue to wean. Adding IS today. Encouraging ambulation. SAMANTA PUENTES MD Jun 03, 2016 17:05
--- NOTE | 2016-06-03 17:34 | NUR ---
BS are coarse crackles, with loose NPC. 82% on room air today after shower, replaced O2 @ 2L nc..
--- NOTE | 2016-06-03 20:00 | NUR ---
Patient resting in bed. Alert and oriented. Oxygen on at 2 lpm n/c. No SOA noted. Has coarse crackles bilaterally. States has pain all over and arthritis, and just does not feel well. Fresh water given. Patient repositioned in bed with minimal assistance. Oxygen remains on at 2 liters per n/c. No other needs at this time.
--- NOTE | 2016-06-03 20:23 | NUR ---
Pt found lying in bed, SPO2 95% on 2 l/min NC, HR 87, BS diminished with end expiratory wheezes before Duoneb. Air movement slightly increased post Tx
--- NOTE | 2016-06-03 21:01 | NUR ---
[place] 10 mg two tabs administered po for discomfort. Watching TV.
--- NOTE | 2016-06-03 22:06 | NUR ---
MS 4mg administered IV for back discomfort and generalized discomfort.
[2016-06-04] MEDS: LORazepam 2 MG/ML (ATIVAN) 1 ML VIAL IV PRN ×2 (01:14→21:06)
[2016-06-04] MEDS: HYDROcodone/APAP 10 MG/325 MG (NORCO) TAB PO PRN ×3 (01:14→18:37)
--- NOTE | 2016-06-04 01:14 | NUR ---
Patient is resting in bed. States is having back pain again at this time. [place] 10mg 2 tabs given for back discomfort. Ativan 0.5mg given per patient request. Oxygen remains on at 2 liters. Patient rests some in between pain medication administration. No other needs at this time.
[2016-06-04 04:53] VITALS: BP 148/72
--- NOTE | 2016-06-04 05:52 | NUR ---
Patient rested at intervals tonight. Did relax after ativan given. Oxygen remains on at 2l . Patient remains alert and oriented. Infrequent non-productive cough. No concerns at this time.
[2016-06-04] MEDS: morphine ER 30 MG (MS CONTIN) TAB PO SCH ×3 (06:33→22:57)
[2016-06-04 06:48] LABS: MEAN CORPUSCULAR HGB CONC 34.9 g/dL (31.0-37.0); MEAN CORPUSCULAR VOLUME 91 FL (80-100); MEAN PLATELET VOLUME 9.2 FL (6.0-9.5); PLATELET COUNT 423 10^3uL (150-450); WHITE BLOOD COUNT 11.43 10^3uL (4.0-11.0)
[2016-06-04 06:49] LABS: ALBUMIN 3.2 g/dL (3.4-5.0); ANION GAP 10.3 MEQ/L (3-15); PHOSPHORUS 3.2 mg/dL (2.4-4.9)
[2016-06-04 06:51] LABS: MAGNESIUM* 2.2 mg/dL (1.6-2.3)
[2016-06-04 07:13] LABS: MEAN CORPUSCULAR HEMOGLOBIN 31.8 PG (26.0-34.0)
[2016-06-04 07:41] LABS: BAND NEUTROPHILS % 0 % (0-6); EOSINOPHILS % 0 % (0-4); LYMPHOCYTES # 3.3 #; MONOCYTES % 9 % (3-11); SEGMENTED NEUTROPHILS % 58 % (51-67); TOTAL CELLS COUNTED 100
[2016-06-04 07:42] LABS: RBC MORPH NORMAL (NORMAL)
--- NOTE | 2016-06-04 07:44 | NUR ---
Pt sleeping on Rt side, no s/s distress or discomfort. Remains on 2L nc. Will try titrating today along with ambulating halls. SL intact to [facility]. Will cont to monitor.
[2016-06-04] MEDS: ALBUTEROL/IPRATROPIUM 3MG-0.5MG/3ML (DUONEB) NEB VIAL INH SCH ×5 (08:14→20:03)
[2016-06-04] MEDS: ENOXAPARIN 40 MG/0.4 ML (LOVENOX) SYR SC SCH ×2 (08:39→08:46)
[2016-06-04] MEDS: NICOTINE 21 MG (NICODERM) PATCH TD SCH (08:39)
[2016-06-04 08:40] VITALS: BP 140/76
[2016-06-04] MEDS: LOSARTAN 100 MG (COZAAR) TABLET PO SCH (08:40)
[2016-06-04] MEDS: morphine INJ 4 MG/ML 1 ML SYRINGE IV PRN ×3 (08:40→23:43)
[2016-06-04] MEDS: predniSONE 20 MG (DELTASONE) TABLET PO SCH (08:40)
[2016-06-04] MEDS: DOXYCYCLINE 100 MG (VIBRAMYCIN) TABLET PO SCH ×2 (08:40→21:06)
[2016-06-04] MEDS: NICOTINE PATCH REMOVAL TOP SCH (08:40)
--- NOTE | 2016-06-04 08:45 | NUR ---
Pt sitting upright on edge of bed eating bfst, talking on cell phone. Takes AM meds- but he tried to refuse Prednisone- stating "it keeps me up, I'm wired at night, I need sleep to heal." This nurse explained to patient importance of Prednisone to ease breathing and explained risks of stopping Prednisone without tapering dose. Pt rolls his eyes and stated, "I wouldn't take it if I could." then took Pills. Pt refused Lovenox injection even with discussion of risks and benefits. Pt is on 1L nc of O2- plan for today is to wean to RA. Will work on this. Morphine 4mg IV given as ordered for c/o 02/07 back pain-- pt states "go ahead and given that as a shot in my leg. I need a 'hypo' to sleep." Pt refuses to walk a lap at this time, states "later." Pt is not has interactive with nurse as yesterday. Verbalizes need to go home today. Nicotine patch in place to Rt upper arm.
--- NOTE | 2016-06-04 09:04 | Progress Note-A/P (E) ---
Progress Note Subjective: Patient reports improvement today. He is currently off of his oxygen. Discussed illness and prognosis with patient. Discussed home medication regimen. Questions answered. Patient is not interested in skilled care on discharge. He is agreeable to physical therapy with home health. He is endorsing continued back pain and some abdominal pain secondary to a known hernia. Objective: Current Medications Albuterol Sulfate 0.083% Neb Solution 2.5 mg Q4H PRN INH Doxycycline 100 mg BID PO Acetaminophen/ Hydrocodone 10 Mg/ 325 Mg 2 ea Q4H PRN PO Lorazepam) 0.5 mg Q6H PRN IV Guaifenesin 400 mg Q4HR PRN PO Promethazine 5 ml HS PRN PO Nicotine 21 mg DAILY TD Morphine 30 mg Q8HR PO Morphine 4 mg Q4H PRN IV Prednisone 60 mg DAILY@0800 PO Losartan 100 mg DAILY PO Enoxaparin 40 mg Q24HR SC Polyethylene Glycol 17 gm DAILY PRN PO Docusate 100 mg BID PRN PO Magnesium Hydroxide 30 ml BID PRN PO Albuterol/ Ipratropium 3 ml RTQID INH Vital Signs Date Time Temp Pulse Resp B/P Pulse Ox O2 Delivery O2 Flow Rate FiO2 06/04/16 08:40 97.8 68 20 140/76 97 Nasal cannula 2.00 I & O Past 24 hrs 06/04/16 07:00 Intake Total 2457 ml Output Total 3175 ml Balance -718 ml Intake Oral 2457 ml Output Urine Total 3175 ml Physical Exam General--Awake and alert. Mild distress. HEENT--Normocephalic. MMM in oral cavity. Lungs--Clear bilaterally. Mildly labored respirations. Heart--RRR. No murmurs. Abdomen--Normal bowel sounds. Soft. Nondistended. Nontender. Extremities--No edema. Past 24 hour Lab Results 06/04/16 05:50 Laboratory Results Past 24 Hrs 06/04/16 05:50: Absolute Band Neutrophils 0.0, Albumin 3.2, Anion Gap 10.3, Atypical Lymphocytes 4, Band Neutrophils % 0, Basophils # (Auto) , Basophils # (Manual) 0.0, Basophils % (Manual) 0, Basophils (%) (Auto) , Blood Morphology Comment Normal, Blood Urea Nitrogen 16, Calcium Level 8.4, Carbon Dioxide Level 32, Chloride Level 95, Creatinine 0.50, Differential Total Cells Counted 100, Eosinophils # 0.0, Eosinophils # (Auto) , Eosinophils % (Manual) 0, Eosinophils (%) (Auto) , Estimat Glomerular Filtration Rate 203.2, Estimated GFR (Non- 167.9, Glucose Level 107, Hematocrit 38.40, Hemoglobin 13.4, Lymphocytes # 3.3, Lymphocytes # (Auto) , Lymphocytes % (Manual) 29, Lymphocytes (%) (Auto) , Magnesium Level 2.2, Mean Corpuscular Hemoglobin 31.8, Mean Corpuscular Hemoglobin Concent 34.9, Mean Corpuscular Volume 91, Mean Platelet Volume 9.2, Monocytes # 1.0, Monocytes # (Auto) , Monocytes % (Manual) 9, Monocytes (%) (Auto) , Neutrophils # 6.6, Neutrophils # (Auto) , Neutrophils (%) (Auto) , Phosphorus Level 3.2, Platelet Count 423, Potassium Level 4.7, Red Blood Count 4.22, Red Cell Distribution Width 14.0, Segmented Neutrophils % 58, Sodium Level 132, White Blood Count 11.43 Imaging Results .06.16 CXR IMPRESSION: No acute abnormalities in the chest Assessment/Plan SIRS Resolved. Secondary to URI and COPD exacerbation. Treatment below. URI Positive for RSV. Supportive measures. Continue duonebs, albuterol, doxy and prednisone. Guaifenesin for cough and phenergan with codeine at nighttime. Acute hypoxic respiratory failure Due to URI with COPD exacerbation. Oxygen has been weaned. Continue IS. COPD exacerbation Due to URI. At home has been on albuterol, prednisone and doxycycline. Guaifenesin, steroids, QID duonebs and continue prn albuterol. Continue HS phenergan with codeine. Mag provided 1.07.17. Will evaluate and make changes in home regimen. Anxiety and depression Chronic for this patient, however this was attempted to be treated by PCP, the patient did not like side effects of the medication. Will provide ativan here for anxiety to help with breathing. Chronic pain Due to multiple back surgeries. Continue home morphine and norco. HTN Continue home losartan. Gave a prn hydralazine for SBP's, however patient had an adverse reaction of anxiety and shortness of air. Currently using metoprolol. Systolic and diastolic CHF LVEF 45-50%, seen on echo done in 2014. FEN No fluids at this time. Mild hyponatremia. Monitor closely. Diet as tolerated. Code status Full code. DVT proph Ambulation. Dispo Continues as inpatient due to hypoxia. Weaned from oxygen. Looking to d/c tomorrow with PT from home health. The patient needs skilled care but he is resistant to this. Will adjust home breathing treatments. SAMANTA PUENTES MD Jun 04, 2016 09:04
--- NOTE | 2016-06-04 10:51 | NUR ---
Pt ambulating halls with [place]. PT- Carlotta 10mg 2 tabs PO given as ordered. O2 sats 71% on RA. Placed back on 1L nc, sats increased to 90%.
--- NOTE | 2016-06-04 11:06 | PT Daily Note Inpatient (E) ---
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, realizes he won't be able to do a lot of it, agrees to amb Pain Level: 5 Pain Location/Comment back and neck pain, nsg notified Oxygen Delivery: Room air Transfers Sit-Stand from bed: Complete [place] Stand-Sit: Complete [place] Gait Ambulation: Supervision or setup Distance Walked: 120', 240' SBA for min unsteadiness, no LOB this a.m., SpO2 after 1st walk was 86%, after 2nd walk 81%, a few minutes of breathing to bring up to 90%, dropped back to low to mid 80s, put on 2L O2 and notified nsg, pt at 92% when I left Weight Bearing Status: Full Assistive Device: None Gait Assist: Supervision Required Gait Description: Flexed Trunk Gait Training: Limitations: SOB, Fatigue, Decreased Strength, Decreased Balance Education/Plan Education Education Needs: Breathing Technique slow to recover on RA to the 90s O2, educated pt on breathing techniques and energy conservation Assessment Slowly progressing with endurance, pt would benefit from extended stay of intermediate 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
[2016-06-04 12:37] VITALS: BP 167/98
--- NOTE | 2016-06-04 14:09 | OT Therapy Evaluation (E) ---
POC Plan of Care Problems Identified: Balance, Lt UE Strength, Rt UE Strength, Safety Awareness Plan: Evaluation-OT, ADL/Self Care Management, Therapy Exercises, Therapy Activities, Pt/Family/Staff Education Frequency of OT: Five times weekly Duration of OT: Other (4) Therapy to Include: ADL training, Balance with ADLs, Pt/family education, Therapeutic activities, UE strengthing Discharge Recommendations: TCU/Skilled NH Pt would benefit from skilled occupational therapy services to improve independence with self care tasks for return to prior level of function with increased safety awareness. Additionally to provide education on energy conservation techniques. Pt. Aware of Dx and Prognosis: Yes Pt. Aware of Risk & Benefit: Yes Goals: Discussed with patient Short Term Goals STG Time Frame: 2 Days Will Dress Upper Extremity: Independently Will Dress Lower Extremity: With Setup/SBA Will do Bathing: With Setup/SBA Will do Toileting: With Setup/SBA STG #1 Pt will participate in 15 min of ther-ex with use of energy conservation techniques as needed. Jail Goals LTG Time Frame: 4 Days Will Dress Upper Extremity: Independently Will Dress Lower Extremity: Independently Will do Tub/Shower Transfer: With Setup/SBA Will Bathe Self: Independently Will do Toilet Transfers: Independently Will do Toilieting: Independently LTG # 1 Pt will verbalize and demonstrate understanding of energy conservation techniques to improve performance during daily activities and leisure tasks. LTG # 2 Pt will completed grooming tasks in standing with SBA. Inital Evaluation/General Service Date/Time 06/04/16, 14:08 Primary Diagnosis: (1) Chronic obstructive pulmonary disease ICD Code: J44.9 (2) URI (upper respiratory infection) ICD Code: J06.9 Treatment Diagnosis: (1) Weakness ICD Code: R53.1 Onset Date: 05/31/16 Start of Care Date: Jun 05, 2016 Precaution/Isolation: Standard Precautions Fall Level: Low Risk 25-50 Resuscitation Status: Full Code Reason for Referral: Evaluation and Treat Pertinent Medical History: Other (COPD, smoker 1 ppd, HTN, 7 back surgeries, nephrectomy, appy, splenetomy. ) Pain Level: 7 Pain Locattion/Comments Pt reports 7-8 pain level with chronic pain in neck and back. Oxygen Needed: Room air O2 liters/minute: 2 Rehabilitation Potential: Good Potential Based On Patient's willingness to participate in therapy and motivation to return home. Rational for Skilled Treatment: Allow return to home, Deconditioning, Maximize Safety, Prevent Falls Living Status Prior to Admit: With Spouse Prior Level of Function: Independent ADLs Prior to onset, pt completed all self care tasks with independence. 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 Pt is used to being active and reports being sick for the past month and losing weight has slowed him down. Entry Into Home: Level Entry (One level) Shower and Tub Type: Tub/shower combination (Pt stands to complete showering tasks. Reports if he is tired, will take a shower. Likes to takes baths as well. ) Assist Devices: Tub Bench (Has a tub bench, but does not use. ) Toilet Type: Standard Current Function Assessment Mental Status Patient Orientation: Person Mental Status: Alert Cognition Attention: Intact Memory: Intact Safety/Judgement: Impaired (Some safety cueing during dressing task.) Visual/Perceptual Skills Hearing: Intact Hand Dominance Hand Dominance: Right ROM/Strength ROM Comment BUE WFL Strength Comment RUE 4-/5, LUE 3+/5 secondary to shoulder concerns. Neurological Coordination: Minimally impaired Endurance Activity Endurance: Becomes SOB, Instructions provided, Needs energy saving techn, Poor, Requires freq rest breaks Bed Mobility/Transfers Bed Mobility: SBA Supine from Sit: CGA Sit to Stand: CGA Sitting Balance: SBA Dressing Dressing: CGA Bathing Shower/Bench Transfer Ability: CGA Bathing- Type of Assistance: SBA Toileting Toilet Hygiene: SBA Toilet Transfer Ability: CGA Additional Assessment/Comments The patient presents with decreased strength, decreased activity tolerance, decreased independence with self care tasks and difficulty maintaining balance during self care tasks which impact pt's ability to participate independently in all tasks. Pt present with comorbidities affecting performance and required minimal physical assistance and safety cueing during assessment which presents as a moderate complexity level. CPT/G Codes Time In: 10:54 Time Out: 11:35 Total Minutes: 41 (06/19 eval, 06/20 ADL) Codes/Minutes: 29645 ADL EA (Pt completed bed mobility with SBA. In sitting, pt participated in lower body dressing task of donning/doffing pants and socks. Pt able to bring opposite leg to knee and don/doff socks with independence. In standing, pt attempted to thread legs and don pants. Noted- pt demonstrated loss of balance requiring stabilization from therapist. Educated and discussed sitting down to don pants then standing up. Pt verbalized understanding. Educated and discussed energy conservation techniques to improve performance during daily activities. Additionally, provided education on diaphramagtic breathing to ease shortness of breathing. Following demonstration, pt able to complete with minimal cueing. ) JOSEPH ARANA OT Jun 04, 2016 14:09
--- NOTE | 2016-06-04 15:26 | NUR ---
O2 sats 95% on 1L nc-Pt ambulated 300ft on RA- Sats 92%. Then ambulated 240feet, O2 sats 92% RA. Pt refuses fci.
--- NOTE | 2016-06-04 15:31 | PT Daily Note Inpatient (E) ---
PT Daily Treatment Service Date/Time 06/04/16, 15:24 Medical Diagnosis: (1) Chronic obstructive pulmonary disease ICD Code: J44.9 (2) URI (upper respiratory infection) ICD Code: J06.9 Physical Therapy: (1) Chronic obstructive pulmonary disease ICD Code: J44.9 Precaution/Isolation: Standard Precautions Resuscitation Status: Full Code Fall Level: Low Risk 25-50 Subjective pt just waking up from a nap, feeling better, adamant about not going to skilled care, is agreeable to home health, agrees to PT Pain Level: 0 Oxygen Delivery: Room air O2 liters/minute: 2 Transfers Supine-Sit: Complete [place] Sit-Stand from bed: Complete [place] Gait Ambulation: Supervision or setup Distance Walked: 300', 240' SpO2 stable at 95% on RA before walk and 92% after both walks Education/Plan Assessment pt endurance improved this p.m. with stable SpO2 between 92-95% Safety Awareness: Intact Response to Treatment: Improving Plan Cont POC Patient will be seen: Daily Wednesday-Wednesday Discharge Recommendations: TCU/Skilled NH Coding Time In: 1502 Time Out: 1525 Total Minutes: 23 Codes/Units: 55343 Exercise Therp JAMIL Aranda PTA Jun 04, 2016 15:31
[2016-06-04 15:47] VITALS: BP 144/84
--- NOTE | 2016-06-04 15:50 | NUR ---
Morphine 4mg IV given as ordered for back pain rated 9/10.
--- NOTE | 2016-06-04 16:13 | NUR ---
Skye RT in room. Remains on RA- Sats 92%. Getting breathing treatment at this time.
--- NOTE | 2016-06-04 16:22 | NUR ---
Dr. Bills at bedside for rounds.
--- NOTE | 2016-06-04 19:15 | NUR ---
Pt laying in bed, watching tv. Denies needs at this time. Introduced him to Hannah RAMON for nights, when telling him goodbye, patient gave this nurse a hug and expresses gratitude for cares received.
[2016-06-04 20:04] VITALS: BP 148/87
[2016-06-04] MEDS ORDERED: HYDROmorphone 1 MG/ML (DILAUDID) SYRINGE IV PRN (20:25)
[2016-06-04] MEDS: SODIUM CHLORIDE FLUSH 10 ML SYR IV PRN ×2 (21:07→23:43)
--- NOTE | 2016-06-04 23:30 | NUR ---
Patient had sudden onset of nausea and vomited large amount of emesis in toilet. Dr. Alvarez notified.
[2016-06-04] MEDS ORDERED: ONDANSETRON 2 MG/ML (Z0FRAN) 2 ML VIAL IV PRN (23:35)
[2016-06-05 00:24] VITALS: BP 148/74
[2016-06-05] MEDS: PROMETHAZINE/CODEINE SYRUP 6.25MG-10MG/5ML (PHENERGAN W/COD) UDC PO PRN ×2 (01:35→22:30)
[2016-06-05] MEDS: HYDROcodone/APAP 10 MG/325 MG (NORCO) TAB PO PRN ×2 (03:18→14:06)
[2016-06-05] MEDS: LORazepam 2 MG/ML (ATIVAN) 1 ML VIAL IV PRN (03:18)
--- NOTE | 2016-06-05 03:23 | NUR ---
Care assumed at 0100. PRN Ativan and [place] given at this time for c/o severe pain and anxiety. Pt states "have you ever just felt like someone didn't believe you?". Reassured pt that we believe him. Pt states "if I throw up like that again, I will . I just can't take it". Pt states he came in for COPD exac and he feels a lot better in that sense. Pt states "why can't they just give me something to knock me out?". Will continue to monitor.
[2016-06-05 04:02] VITALS: BP 130/73
[2016-06-05 06:31] LABS: MEAN CORPUSCULAR HGB CONC 34.7 g/dL (31.0-37.0); MEAN CORPUSCULAR VOLUME 91 FL (80-100); MEAN PLATELET VOLUME 9.1 FL (6.0-9.5); PLATELET COUNT 475 10^3uL (150-450); WHITE BLOOD COUNT 11.55 10^3uL (4.0-11.0)
[2016-06-05 06:41] LABS: ALBUMIN 3.3 g/dL (3.4-5.0); ANION GAP 11.7 MEQ/L (3-15); MAGNESIUM* 1.9 mg/dL (1.6-2.3)
[2016-06-05 07:00] LABS: MEAN CORPUSCULAR HEMOGLOBIN 31.5 PG (26.0-34.0)
[2016-06-05 07:07] LABS: BAND NEUTROPHILS % 7 % (0-6); EOSINOPHILS % 0 % (0-4); LYMPHOCYTES # 0.5 #; MONOCYTES # 0.6 #; MONOCYTES % 5 % (3-11); RBC MORPH NORMAL (NORMAL); SEGMENTED NEUTROPHILS % 84 % (51-67); TOTAL CELLS COUNTED 100
[2016-06-05] MEDS: predniSONE 20 MG (DELTASONE) TABLET PO SCH (07:40)
[2016-06-05] MEDS: morphine ER 30 MG (MS CONTIN) TAB PO SCH ×3 (07:40→21:04)
[2016-06-05 08:27] VITALS: BP 146/71
[2016-06-05] MEDS: DOXYCYCLINE 100 MG (VIBRAMYCIN) TABLET PO SCH ×2 (08:51→21:03)
[2016-06-05] MEDS: LOSARTAN 100 MG (COZAAR) TABLET PO SCH (08:51)
[2016-06-05] MEDS: NICOTINE 21 MG (NICODERM) PATCH TD SCH (08:51)
[2016-06-05] MEDS: ENOXAPARIN 40 MG/0.4 ML (LOVENOX) SYR SC SCH (08:52)
[2016-06-05] MEDS: NICOTINE PATCH REMOVAL TOP SCH (08:59)
[2016-06-05] MEDS: ALBUTEROL/IPRATROPIUM 3MG-0.5MG/3ML (DUONEB) NEB VIAL INH SCH ×4 (09:26→19:22)
--- NOTE | 2016-06-05 11:26 | PT Daily Note Inpatient (E) ---
PT Daily Treatment Service Date/Time 06/05/16, 11:25 Medical Diagnosis: (1) Chronic obstructive pulmonary disease ICD Code: J44.9 (2) URI (upper respiratory infection) ICD Code: J06.9 Physical Therapy: (1) Chronic obstructive pulmonary disease ICD Code: J44.9 Precaution/Isolation: Standard Precautions Resuscitation Status: Full Code Fall Level: Low Risk 25-50 Subjective Oxygen Delivery: Room air O2 liters/minute: 0 Education/Plan Plan Patient will be seen: Daily Wednesday-Wednesday Discharge Recommendations: TCU/Skilled NH Coding No Treatment Provide Reason: Ill (pt requests to hold therapy until after lunch , reports he had a rough night vomitting, and just now getting some good sleep) JAMIL OROZCO [employer] CONTROL ENGINEER Jun 05, 2016 11:26
[2016-06-05 11:56] VITALS: BP 124/61
--- NOTE | 2016-06-05 12:52 | NUR ---
Pt resting in bed at this time. Pt has been quite lethargic this morning, sleeping in bed, despite instruction from multiple staff members to wake up and ambulate around room and unit. Skin warm, dry, intact. Resprs nonlabored, even on RA. Denies needs.
--- NOTE | 2016-06-05 13:46 | PT Daily Note Inpatient (E) ---
PT Daily Treatment Service Date/Time 06/05/16, 13:45 Medical Diagnosis: (1) Chronic obstructive pulmonary disease ICD Code: J44.9 (2) URI (upper respiratory infection) ICD Code: J06.9 Physical Therapy: (1) Chronic obstructive pulmonary disease ICD Code: J44.9 Precaution/Isolation: Standard Precautions Resuscitation Status: Full Code Fall Level: Low Risk 25-50 Subjective Pt states he wants to get home as soon as possible. Pt pleasant and ready to exercise. Oxygen Delivery: Room air O2 liters/minute: 0 Treatments Dynamic Balance: Tandem, Marching, Lateral Stepping, Backwards Dynamic Balance in Feet: 2x 15 feet Transfers Sit-Stand from bed: Complete [place] Stand-Sit: Complete [place] Gait Ambulation: Supervision or setup Distance Walked: 300 feet Assistive Device: None Gait Description: Decreased [place], Slow, Short Step Length, Flexed Trunk Gait Training: Limitations: Fatigue Education/Plan Plan Patient will be seen: Daily Wednesday-Wednesday Discharge Recommendations: TCU/Skilled NH Coding Time In: 13:20 Time Out: 13:44 Total Minutes: 24 Codes/Units: 34428 Exercise Therp 15 m (14), 61886 Neurmus Exer 15 min (10) Tesfaye Blackmon PTA Jun 05, 2016 13:46
[2016-06-05] MEDS: POLYETHYLENE GLYCOL 17 GM (MIRALAX) PACKET PO PRN (14:48)
--- NOTE | 2016-06-05 14:50 | NUR ---
Pt. states he has not had a BM in 4 days and requests a laxative. After discussing options available, Miralax given in [place] at this time.
[2016-06-05 15:44] VITALS: BP 133/79
[2016-06-05] MEDS ORDERED: HYDROmorphone 1 MG/ML (DILAUDID) SYRINGE IV PRN (17:35)
--- NOTE | 2016-06-05 17:35 | Progress Note-A/P (E) ---
Progress Note Subjective: Patient is resting in bed. Patient reports a rough night with pain and nausea. Patient is reporting some abdominal pain from his lovenox shots, offered SCD's however he is not interested in those. Discussed discharge plans. Questions answered. Revisited some of our discussion regarding future oxygen needs, clarified some concerns. Objective: Current Medications Albuterol Sulfate 0.083% Neb Solution 2.5 mg Q4H PRN INH Doxycycline 100 mg BID PO Acetaminophen/ Hydrocodone 10 Mg/ 325 Mg 2 ea Q4H PRN PO Lorazepam) 0.5 mg Q6H PRN IV Guaifenesin 400 mg Q4HR PRN PO Promethazine 5 ml HS PRN PO Nicotine 21 mg DAILY TD Morphine 30 mg Q8HR PO Morphine 4 mg Q4H PRN IV Prednisone 60 mg DAILY@0800 PO Losartan 100 mg DAILY PO Enoxaparin 40 mg Q24HR SC Polyethylene Glycol 17 gm DAILY PRN PO Docusate 100 mg BID PRN PO Magnesium Hydroxide 30 ml BID PRN PO Albuterol/ Ipratropium 3 ml RTQID INH Vital Signs Date Time Temp Pulse Resp B/P Pulse Ox O2 Delivery O2 Flow Rate FiO2 06/05/16 15:44 98.2 108 20 133/79 90 Room air 0.00 I & O Past 24 hrs 06/05/16 07:00 Intake Total 1497 ml Output Total 1550 ml Balance -53 ml Intake Oral 1497 ml Output Urine Total 1550 ml Physical Exam General--Awake and alert. Mild distress. HEENT--Normocephalic. MMM in oral cavity. Lungs--Clear bilaterally. Mildly labored respirations. Heart--RRR. No murmurs. Abdomen--Normal bowel sounds. Soft. Nondistended. Nontender. Extremities--No edema. Past 24 hour Lab Results 06/05/16 05:45 Laboratory Results Past 24 Hrs 06/05/16 05:45: Absolute Band Neutrophils 0.8, Albumin 3.3, Anion Gap 11.7, Band Neutrophils % 7 , Basophils # (Auto) , Basophils # (Manual) 0.0, Basophils % (Manual) 0, Basophils (%) (Auto) , Blood Morphology Comment Normal, Blood Urea Nitrogen 25, Calcium Level 8.1, Carbon Dioxide Level 29, Chloride Level 97, Creatinine 0.51, Differential Total Cells Counted 100, Eosinophils # 0.0, Eosinophils # (Auto) , Eosinophils % (Manual) 0, Eosinophils (%) (Auto) , Estimat Glomerular Filtration Rate 198.6, Estimated GFR (Non- 164.2, Glucose Level 105, Hematocrit 42.70, Hemoglobin 14.8, Lymphocytes # 0.5, Lymphocytes # (Auto) , Lymphocytes % (Manual) 4, Lymphocytes (%) (Auto) , Magnesium Level 1.9, Mean Corpuscular Hemoglobin 31.5, Mean Corpuscular Hemoglobin Concent 34.7, Mean Corpuscular Volume 91, Mean Platelet Volume 9.1, Monocytes # 0.6, Monocytes # ( Auto) , Monocytes % (Manual) 5, Monocytes (%) (Auto) , Neutrophils # 9.7, Neutrophils # (Auto) , Neutrophils (%) (Auto) , Phosphorus Level 3.0, Platelet Count 475, Potassium Level 4.2, Red Blood Count 4.70, Red Cell Distribution Width 14.2, Segmented Neutrophils % 84, Sodium Level 134, White Blood Count 11.55 Imaging Results .06.16 CXR IMPRESSION: No acute abnormalities in the chest Assessment/Plan SIRS Resolved. Secondary to URI and COPD exacerbation. Treatment below. URI Positive for RSV. Supportive measures. Continue duonebs, albuterol, doxy and prednisone. Guaifenesin for cough and phenergan with codeine at nighttime. Acute hypoxic respiratory failure Due to URI with COPD exacerbation. Oxygen has been weaned. Continue IS. COPD exacerbation Due to URI. At home has been on albuterol, prednisone and doxycycline. Guaifenesin, steroids, QID duonebs and continue prn albuterol. Continue HS phenergan with codeine. Mag provided 1... Pain/chronic pain Patient is having worsening pain, likely due to not sleeping in his home bed. Continue home medications. Will provide dilaudid BID for breakthrough pain. Nausea and vomiting Overnight, has currently resolved. Will continue prn antiemetics. Anxiety and depression Chronic for this patient, however this was attempted to be treated by PCP, the patient did not like side effects of the medication. Have been providing ativan here for anxiety to help with breathing. HTN Continue home losartan. Gave a prn hydralazine for SBP's, however patient had an adverse reaction of anxiety and shortness of air. Currently prn metoprolol ordered. Systolic and diastolic CHF LVEF 45-50%, seen on echo done in 2014. FEN No fluids at this time. Mild hyponatremia. Monitor closely. Diet as tolerated. Code status Full code. DVT proph Ambulation. Dispo Continues as inpatient due to hypoxia. Weaned from oxygen. Looking to d/c soon with PT from home health. However given the patients episodes overnight will continue to watch. Possible d/c on Wednesday. SAMANTA PUENTES MD Jun 05, 2016 17:35
--- NOTE | 2016-06-05 17:50 | OT Daily Note Inpatient (E) ---
OT Daily Treatment Service Date/Time 06/05/16, 17:45 Primary Diagnosis: (1) Chronic obstructive pulmonary disease ICD Code: J44.9 (2) URI (upper respiratory infection) ICD Code: J06.9 Treatment Diagnosis: (1) Weakness ICD Code: R53.1 Onset Date: 05/31/16 Start of Care Date: Jun 05, 2016 Precaution/Isolation: Standard Precautions Fall Level: Low Risk 25-50 Resuscitation Status: Full Code Current Activity: Agrees to participate, In bed the PT tx before has gotten me flared up now Pain Level: 9 Pain Location/Comment back/ neck Oxygen Needed: Room air O2 liters/minute: 0 Current Function Assessment Cognition Attention: Intact Memory: Intact Safety/Judgement: Impaired (Some safety cueing during dressing task.) Visual/Perceptual Skills Hearing: Intact Hand Dominance Hand Dominance: Right Endurance Activity Endurance: Becomes SOB, Instructions provided, Needs energy saving techn Pt given handout and educated in work simplification, energy conservation and diaphragmatic breathing Education/Assessment Education Provided: Energy conservation, Home management/safety Education Evalution: Demonstrate understanding Treatment Tolerance: Kj trmnt w/o complaints Problems Impacting Treatment: Needs freq rest breaks Rehabilitation Potential: Good Pt receptive to handouts and education POC Plan of Care Problems Identified: Balance, Lt UE Strength, Rt UE Strength, Safety Awareness Plan: Evaluation-OT, ADL/Self Care Management, Therapy Exercises, Therapy Activities, Pt/Family/Staff Education Frequency of OT: Five times weekly Duration of OT: Other (4) Therapy to Include: ADL training, Balance with ADLs, Pt/family education, Therapeutic activities, UE strengthing Discharge Recommendations: TCU/Skilled NH Pt. Aware of Dx and Prognosis: Yes Pt. Aware of Risk & Benefit: Yes Goals: Discussed with patient Short Term Goals STG Time Frame: 2 Days Will Dress Upper Extremity: Independently Will Dress Lower Extremity: With Setup/SBA Will do Bathing: With Setup/SBA Will do Toileting: With Setup/SBA STG #1 Pt will participate in 15 min of ther-ex with use of energy conservation techniques as needed. Long-Term Goals LTG Time Frame: 4 Days Will Dress Upper Extremity: Independently Will Dress Lower Extremity: Independently Will do Tub/Shower Transfer: With Setup/SBA Will Bathe Self: Independently Will do Toilet Transfers: Independently Will do Toilieting: Independently LTG # 1 Pt will verbalize and demonstrate understanding of energy conservation techniques to improve performance during daily activities and leisure tasks. met LTG # 2 Pt will completed grooming tasks in standing with SBA. CPT/G Codes Time In: 1344 Time Out: 1400 Total Minutes: 16 Codes/Minutes: 27517 Therp Activity Josie Polanco Jun 05, 2016 17:50
[2016-06-05] MEDS: SODIUM CHLORIDE FLUSH 10 ML SYR IV PRN (17:55)
--- NOTE | 2016-06-05 18:42 | NUR ---
Pt. feeling better after receiving Dilaudid for severe lower back pain. Pt. has rested in bed most of the afternoon, ambulating with PT and having a shower today. Encouraged pt. to call for assistance if he wants to ambulate at other times throughout the day. Instructed pt. to call for help to the bathroom if he needs to get up.
[2016-06-05] MEDS: ALBUTEROL 0.083% NEB SOLUTION 2.5 MG/3 ML VIAL INH PRN (19:21)
[2016-06-05 20:18] VITALS: BP 132/56
[2016-06-06 00:15] VITALS: BP 128/62
[2016-06-06] MEDS: HYDROcodone/APAP 10 MG/325 MG (NORCO) TAB PO PRN ×2 (01:19→12:05)
[2016-06-06] MEDS: morphine INJ 4 MG/ML 1 ML SYRINGE IV PRN (02:56)
[2016-06-06 04:00] VITALS: BP 124/77
--- NOTE | 2016-06-06 05:04 | NUR ---
Pt complains of back pain 01/07, received scheduled dose of MS Contin ER 30mg PO at 2103. 2229-Pt reports that he keeps coughing and that it is causing back pain, gave Phenergan/Codeine Cough Syrup 5mls PO for discomfort. 118-Pt complains of constipation and severe back pain, rates /, gave MOM 30ml PO for constipation, and Crawford 5/325mg 2 tabs PO for pain. 025-Pt reports back pain, rates 12/07, gave Morphine Sulfate 4mg SIVP for discomfort. 0508-Pt is resting in bed asleep, call light in reach, will continue to monitor.
[2016-06-06] MEDS: morphine ER 30 MG (MS CONTIN) TAB PO SCH (05:58)
[2016-06-06] MEDS: ALBUTEROL/IPRATROPIUM 3MG-0.5MG/3ML (DUONEB) NEB VIAL INH SCH ×2 (07:31→11:50)
--- NOTE | 2016-06-06 07:34 | NUR ---
Pt is laying in bed, tolerated tx well. Pt is on room air, SPO2 93%. BS are clear.
[2016-06-06] MEDS: predniSONE 20 MG (DELTASONE) TABLET PO SCH (07:48)
[2016-06-06 08:05] VITALS: BP 158/85
[2016-06-06] MEDS: DOXYCYCLINE 100 MG (VIBRAMYCIN) TABLET PO SCH (08:56)
[2016-06-06] MEDS: DOCUSATE SODIUM 100 MG (COLACE) CAP PO PRN (08:56)
[2016-06-06] MEDS: LOSARTAN 100 MG (COZAAR) TABLET PO SCH (08:56)
[2016-06-06] MEDS: POLYETHYLENE GLYCOL 17 GM (MIRALAX) PACKET PO PRN (08:57)
[2016-06-06] MEDS: NICOTINE 21 MG (NICODERM) PATCH TD SCH (08:57)
[2016-06-06] MEDS: ENOXAPARIN 40 MG/0.4 ML (LOVENOX) SYR SC SCH (08:57)
[2016-06-06] MEDS: NICOTINE PATCH REMOVAL TOP SCH (08:58)
--- NOTE | 2016-06-06 09:28 | NUR ---
Alicia in [place]. Kj well.
[2016-06-06] MEDS: LORazepam 2 MG/ML (ATIVAN) 1 ML VIAL IV PRN (10:55)
[2016-06-06] MEDS: SODIUM CHLORIDE FLUSH 3 ML SYR IV PRN (10:55)
--- NOTE | 2016-06-06 10:55 | NUR ---
REQUEST ANXIETY MED. STATES IS WORRYING TOO MUCH ABOUT RESPONSIBILITIES AT HOME AND GETTNG ANXIOUS. MED GIVEN.
--- NOTE | 2016-06-06 11:07 | NUR ---
PATIENT HAS BEEN AMB. STATES IF AMB TOO FAR GET A LITTLE SOA BUT OTHERWISE GAUTAM WELL WITHOUT O2. STATES WOULD LIKE TO GO HOME TODAY IF POSSIBLE. DR. CABRERA NOTIFIED.
--- NOTE | 2016-06-06 11:11 | NUR ---
DR. RAMOS STATES THERE IS A POSSIBILITY PATIENT COULD GO HOME TODAY. PATIENT INFORMED.
--- NOTE | 2016-06-06 11:14 | NUR ---
AMB WITH PT. O2 SAT 91% ON RA WHILE AMB. DR. CABRERA NOTIFIED.
[2016-06-06 11:24] VITALS: BP 155/67
[2016-06-06] MEDS ORDERED: DOXY100C2 PO (11:32)
[2016-06-06] MEDS ORDERED: IPRA3AMP11 INH (11:32)
[2016-06-06] MEDS ORDERED: PRCD5U PO (11:32)
[2016-06-06] MEDS ORDERED: ALBU8.5H2 IH (11:32)
[2016-06-06] MEDS ORDERED: GUAI120016 PO (11:39)
--- NOTE | 2016-06-06 11:42 | Discharge Instructions (E) ---
Discharge Instructions Instructions * You were evaluated and treated for exacerbation of COPD, likely due to a viral upper respiratory infection. This may also have been aggravated by exposure to pet dander in the home you are trying to clean out. You improved with therapies provided but will need to complete a course of doxycycline after discharge. You will also benefit from continued use of ipratropium/albuterol ( Duoneb) 4 times daily. Use albuterol as needed. Avoid exposures to dust/dander which can trigger COPD attacks. * Once you have recovered from this illness your COPD should be assessed with a pulmonary function test. This can be ordered by your primary care doctor in 4-6 weeks. * Quitting smoking is one of the most important things you can do today to improve your health. Review the provided handouts for details. Activity Instructions Avoid strenuous activity. Avoid exposure to dust/pollen/dander which can aggravate your COPD. Doctor's Appointment Follow-up with your primary care doctor in 3-5 days. Discharge Diet: DISHA Farr MD Jun 06, 2016 11:42
--- NOTE | 2016-06-06 12:21 | PT Daily Note Inpatient (E) ---
PT Daily Treatment Service Date/Time 06/06/16, 10:58 Medical Diagnosis: (1) Chronic obstructive pulmonary disease ICD Code: J44.9 (2) URI (upper respiratory infection) ICD Code: J06.9 Physical Therapy: (1) Chronic obstructive pulmonary disease ICD Code: J44.9 Precaution/Isolation: Standard Precautions Resuscitation Status: Full Code Fall Level: Low Risk 25-50 Subjective Pain Level: 0 Oxygen Delivery: Room air O2 liters/minute: 0 Gait Ambulation: Complete [place] Distance Walked: 300 feet, 150 feet seated break between ambulation Weight Bearing Status: Full Assistive Device: None Gait Assist: Independent Gait Description: Normal:No Sig. Deviation Gait Training: Limitations: SOB, Fatigue Oxygen 91% after ambulation Education/Plan Education Education Needs: Breathing Technique Assessment Safety Awareness: Intact Response to Treatment: Improving Plan Patient will be seen: Daily Wednesday-Wednesday Discharge Recommendations: TCU/Skilled NH Coding Time In: 10:58 Time Out: 11:14 Total Minutes: 16 Codes/Units: 65297 Gait Training 15 mi Possibility of discharge from facility today to home. Therese Mejia PT Jun 06, 2016 12:21
--- NOTE | 2016-06-06 12:35 | NUR ---
Reviewed discharge medications with patient. Provided patient handout information for new medications. No additional questions or concerns. Patient verbalized understanding of medications.
--- NOTE | 2016-06-06 12:42 | NUR ---
Dismissed to home per w/c accompanied by spouse and Candis SHEA. Resp regular and unlabored. Skin w/p/d. Alert and oriented x 4.
--- NOTE | 2016-06-07 08:31 | Discharge Summary (E) ---
Discharge Summary (E) Admit Date/Time Jun 02, 2016 at 11:04 Discharge Date/Time Jun 06, 2016 at 12:42 Admitting Provider Anyi Bills MD Primary Care Provider Richard Perez MD Attending Provider Anyi Bills MD, Michael MD Consulting Provider History and Present Illness See History and Physical for complete details. Bernabe Biggs is a 65 year old male admitted from ED 05/31 with acute respiratory failure attributed to COPD with acute exacerbation and RSV URI. COPD was likely also aggravated by environmental exposures in a home which he is working to clean out. He met SIRS criteria on admit. He had slow recovery from COPD symptoms but did improve with transition to room air the day of discharge. He was sent home with Duoneb, albuterol, and additional medication for COPD exacerbation as noted. He was strongly encouraged to quit smoking. Hospital Course and Treatment * SIRS: Resolved. Attributed to RSV URI and COPD exacerbation. * Acute Respiratory Failure: Resolved. Treated underlying problems. Oxygen protocol. At discharge, was on room air. * COPD with Acute Exacerbation: Duoneb scheduled, albuterol PRN. Doxycycline. Methylprednisolone (not started until 06/01) with transition to prednisone ( completed burst course while in hospital.) Guaifenesin. Magnesium 06/01 for persistent bronchospasm. Oxygen protocol. * Cough: Promethazine/codeine. * Hyponatremia: Mild. Resolving. Shreyas Na was 132. Attributed to lung disease. Monitored trend closely. * F/E/N: Regular. Peripheral IV. * Prophylaxis: Enoxaparin * Code Status: Full * Dispo: Inpatient CHRONIC ISSUES * Chronic Back Pain: MS Contin, hydrocodone/acetaminophen. Morphine IV for breakthrough pain. * Tobacco abuse: Nicotine patch. Strongly encouraged cessation. Handouts provided. * HTN: Losartan Discharge Physicial Exam General Vital Signs Date Time Temp Pulse Resp B/P Pulse Ox O2 Delivery O2 Flow Rate FiO2 06/06/16 11:24 97.3 87 22 155/67 93 Room air 06/05/16 15:44 0.00 GEN: Thin body havitus. HEENT: EOMI, clear sclerae, mildly dry oral mucosa. CV: Regular without significant murmur. PULM: Better air movement with improvement in end-expiratory wheeze. ABD: Flat, soft, NT/ND with normal bowels ounds. EXTR: Warm, dry, well-perfused. INTEG: Age related changes. NEURO: No focal motor neuro deficit. Laboratory/Radiology Data Laboratory Results-14 Days 05/31/16 03:15: Absolute Band Neutrophils 0.0, Alanine Aminotransferase (ALT/SGPT) 34, Albumin 4.2, Albumin/Globulin Ratio 1.500, Alkaline Phosphatase 73, Anion Gap 14.4, Aspartate Amino Transf (AST/SGOT) 38H, BUN/Creatinine Ratio 27H, Band Neutrophils % 0, Basophils # (Auto) , Basophils # (Manual) 0.0, Basophils % ( Manual) 0, Basophils (%) (Auto) , Blood Morphology Comment Normal, Blood Urea Nitrogen 15, Calcium Level 9.1, Calcium/Ionized Calcium Ratio 4.0, Calculated Osmolality 259L, Carbon Dioxide Level 27, Chloride Level 96L, Creatinine 0.55L, Differential Total Cells Counted 100, Eosinophils # 0.1, Eosinophils # (Auto) , Eosinophils % (Manual) 1, Eosinophils (%) (Auto) , Estimat Glomerular Filtration Rate 182.0, Estimated GFR (Non- 150.5, Glucose Level 107, Hematocrit 39.10, Hemoglobin 14.0, Lymphocytes # 1.5, Lymphocytes # (Auto) , Lymphocytes % (Manual) 12L, Lymphocytes (%) (Auto) , Mean Corpuscular Hemoglobin 32.1, Mean Corpuscular Hemoglobin Concent 35.8, Mean Corpuscular Volume 90, Mean Platelet Volume 8.7, Monocytes # 1.7, Monocytes # (Auto) , Monocytes % (Manual) 14H, Monocytes (%) (Auto) , AF-Vct-K-Type Natriuretic Peptide 408H, Neutrophils # 8.9, Neutrophils # (Auto) , Neutrophils (%) (Auto) , Platelet Count 440, Potassium Level 4.5, Prothromb Time International Ratio 1.0, Prothrombin Time 11.1, Red Blood Count 4.36L, Red Cell Distribution Width 14.1, Segmented Neutrophils % 73H, Sodium Level 133L, Total Bilirubin 0.5#, Total Protein 7.0, Troponin I 0.015, White Blood Count 12.22H 05/31/16 05:07: Adenovirus (PCR) Negative, Bordetella parapertussis DNA (PCR) Negative, Chlamydophila pneumoniae (PCR) Negative, Coronavirus Type 229E (PCR) Negative, Coronavirus Type HKU1 (PCR) Negative, Coronavirus Type NL63 (PCR) Negative, Coronavirus Type OC43 (PCR) Negative, Enterovirus/Rhinovirus (PCR) Negative, Human Metapneumovirus (PCR) Negative, Influenza Type A (H1) (PCR) Negative, Influenza Virus Type B (PCR) Negative, Mycoplasma pneumoniae (PCR) Negative, Parainfluenza Type 1 (PCR) Negative, Parainfluenza Type 2 (PCR) Negative, Parainfluenza Type 3 (PCR) Negative, Parainfluenza Type 4 (PCR) Negative, Respiratory Syncytial Virus (PCR) Positive*A 06/01/16 05:55: Absolute Band Neutrophils 0.0, Alanine Aminotransferase (ALT/SGPT) 34, Albumin 3.7, Albumin/Globulin Ratio 1.541, Alkaline Phosphatase 66, Anion Gap 13.2, Aspartate Amino Transf (AST/SGOT) 33, BUN/Creatinine Ratio 32H, Band Neutrophils % 0, Basophils # (Auto) , Basophils # (Manual) 0.0, Basophils % ( Manual) 0, Basophils (%) (Auto) , Blood Morphology Comment Normal, Blood Urea Nitrogen 19H, Calcium Level 9.0, Calcium/Ionized Calcium Ratio 4.3, Calculated Osmolality 258L, Carbon Dioxide Level 28, Chloride Level 96L, Creatinine 0.59L, Differential Total Cells Counted 100, Eosinophils # 0.0, Eosinophils # (Auto) , Eosinophils % (Manual) 0, Eosinophils (%) (Auto) , Estimat Glomerular Filtration Rate 167.9, Estimated GFR (Non- 138.7, Glucose Level 100, Hematocrit 41.40, Hemoglobin 14.2, Lymphocytes # 1.1, Lymphocytes # (Auto) , Lymphocytes % (Manual) 11L, Lymphocytes (%) (Auto) , Mean Corpuscular Hemoglobin 31.8, Mean Corpuscular Hemoglobin Concent 34.3, Mean Corpuscular Volume 93, Mean Platelet Volume 9.1, Monocytes # 1.8, Monocytes # (Auto) , Monocytes % (Manual) 18H, Monocytes (%) (Auto) , Neutrophils # 7.2, Neutrophils # (Auto) , Neutrophils (%) (Auto) , Platelet Count 412, Potassium Level 5.0, Red Blood Count 4.47L, Red Cell Distribution Width 14.9, Segmented Neutrophils % 69H, Sodium Level 132L, Total Bilirubin 0.5, Total Protein 6.1L, White Blood Count 10.47, Atypical Lymphocytes 2 06/03/16 05:50: Absolute Band Neutrophils 0.0, Albumin 3.4, Anion Gap 10.0, Band Neutrophils % 0 , Basophils # (Auto) , Basophils # (Manual) 0.0, Basophils % (Manual) 0, Basophils (%) (Auto) , Blood Morphology Comment Normal, Blood Urea Nitrogen 15, Calcium Level 8.5L, Carbon Dioxide Level 30H, Chloride Level 96L, Creatinine 0.48L, Differential Total Cells Counted 100, Eosinophils # 0.0, Eosinophils # ( Auto) , Eosinophils % (Manual) 0, Eosinophils (%) (Auto) , Estimat Glomerular Filtration Rate 213.0, Estimated GFR (Non- 176.0, Glucose Level 153#H, Hematocrit 38.60L, Hemoglobin 13.0L, Lymphocytes # 1.3, Lymphocytes # ( Auto) , Lymphocytes % (Manual) 15L, Lymphocytes (%) (Auto) , Mean Corpuscular Hemoglobin 30.5, Mean Corpuscular Hemoglobin Concent 33.7, Mean Corpuscular Volume 91, Mean Platelet Volume 9.0, Monocytes # 0.8, Monocytes # (Auto) , Monocytes % (Manual) 10, Monocytes (%) (Auto) , Neutrophils # 6.4, Neutrophils # (Auto) , Neutrophils (%) (Auto) , Platelet Count 423, Potassium Level 4.5, Red Blood Count 4.26L, Red Cell Distribution Width 13.9, Segmented Neutrophils % 75H, Sodium Level 132L, White Blood Count 8.56, Magnesium Level 2.1, Phosphorus Level 3.7 06/04/16 05:50: Absolute Band Neutrophils 0.0, Albumin 3.2L, Anion Gap 10.3, Atypical Lymphocytes 4, Band Neutrophils % 0, Basophils # (Auto) , Basophils # (Manual) 0.0, Basophils % (Manual) 0, Basophils (%) (Auto) , Blood Morphology Comment Normal, Blood Urea Nitrogen 16, Calcium Level 8.4L, Carbon Dioxide Level 32H, Chloride Level 95L, Creatinine 0.50L, Differential Total Cells Counted 100, Eosinophils # 0.0, Eosinophils # (Auto) , Eosinophils % (Manual) 0, Eosinophils (%) (Auto) , Estimat Glomerular Filtration Rate 203.2, Estimated GFR (Non- 167.9, Glucose Level 107#, Hematocrit 38.40L, Hemoglobin 13.4L , Lymphocytes # 3.3, Lymphocytes # (Auto) , Lymphocytes % (Manual) 29, Lymphocytes (%) (Auto) , Magnesium Level 2.2, Mean Corpuscular Hemoglobin 31.8, Mean Corpuscular Hemoglobin Concent 34.9, Mean Corpuscular Volume 91, Mean Platelet Volume 9.2, Monocytes # 1.0, Monocytes # (Auto) , Monocytes % (Manual) 9, Monocytes (%) (Auto) , Neutrophils # 6.6, Neutrophils # (Auto) , Neutrophils (%) (Auto) , Phosphorus Level 3.2, Platelet Count 423, Potassium Level 4.7, Red Blood Count 4.22L, Red Cell Distribution Width 14.0, Segmented Neutrophils % 58 , Sodium Level 132L, White Blood Count 11.43H 06/05/16 05:45: Absolute Band Neutrophils 0.8, Albumin 3.3L, Anion Gap 11.7, Band Neutrophils % 7H, Basophils # (Auto) , Basophils # (Manual) 0.0, Basophils % (Manual) 0, Basophils (%) (Auto) , Blood Morphology Comment Normal, Blood Urea Nitrogen 25#H , Calcium Level 8.1L, Carbon Dioxide Level 29, Chloride Level 97L, Creatinine 0.51L, Differential Total Cells Counted 100, Eosinophils # 0.0, Eosinophils # ( Auto) , Eosinophils % (Manual) 0, Eosinophils (%) (Auto) , Estimat Glomerular Filtration Rate 198.6, Estimated GFR (Non- 164.2, Glucose Level 105, Hematocrit 42.70, Hemoglobin 14.8, Lymphocytes # 0.5, Lymphocytes # (Auto) , Lymphocytes % (Manual) 4L, Lymphocytes (%) (Auto) , Magnesium Level 1.9, Mean Corpuscular Hemoglobin 31.5, Mean Corpuscular Hemoglobin Concent 34.7, Mean Corpuscular Volume 91, Mean Platelet Volume 9.1, Monocytes # 0.6, Monocytes # ( Auto) , Monocytes % (Manual) 5, Monocytes (%) (Auto) , Neutrophils # 9.7, Neutrophils # (Auto) , Neutrophils (%) (Auto) , Phosphorus Level 3.0, Platelet Count 475H, Potassium Level 4.2, Red Blood Count 4.70, Red Cell Distribution Width 14.2, Segmented Neutrophils % 84H, Sodium Level 134L, White Blood Count 11.55H MICRO 05/31 Resp PCR Panel POSITIVE for RSV 05/31/16 CHEST 1 VIEW, AP/PA ONLY* INDICATION: Shortness of breath Portable chest 3:40 AM Heart size and pulmonary vascularity are normal. Lungs are clear. There are no effusions or pneumothoraces. IMPRESSION: No acute abnormalities in the chest Discharge Disposition Discharged home. Instructions * You were evaluated and treated for exacerbation of COPD, likely due to a viral upper respiratory infection. This may also have been aggravated by exposure to pet dander in the home you are trying to clean out. You improved with therapies provided but will need to complete a course of doxycycline after discharge. You will also benefit from continued use of ipratropium/albuterol ( Duoneb) 4 times daily. Use albuterol as needed. Avoid exposures to dust/dander which can trigger COPD attacks. * Once you have recovered from this illness your COPD should be assessed with a pulmonary function test. This can be ordered by your primary care doctor in 4-6 weeks. * Quitting smoking is one of the most important things you can do today to improve your health. Review the provided handouts for details. Activity Instructions Avoid strenuous activity. Avoid exposure to dust/pollen/dander which can aggravate your COPD. Appointments Follow-up with your primary care doctor in 3-5 days. Discharge Diet: Regular Discharge Medications New Medications: Guaifenesin (Guaifenesin) 1,200 Mg Tab.er.12h 1200 MG PO BID Take for 5 more days, then as needed. #10 Ref 0 TAB Albuterol/Ipratropium (Duoneb 3mg-0.5mg/3ml) 3 Ml Nebu 3 ML INH RTQID #25 Ref 1 VIAL Promethazine/Codeine (Phenergan w/Codeine 6.25mg-10mg/5ml) 5 Ml Syrp 5 ML PO HS PRN COUGH #1 Ref 0 BTL Changed Medications: Albuterol Sulfate (Proair HFA) 8.5 Gm Hfa.aer.ad 2 PUFF IH Q4H PRN DYSPNEA #1 Ref 1 INHALER (Changed from: 8.5 GM; BID; Refills: ) Continued Medications: Albuterol Sulfate (Albuterol Sulfate) 2.5 Mg/0.5 Ml Vial.neb 2.5 MG INH NEEDED Reactive Airway Ref 0 VIAL Doxycycline Hyclate (Doxycycline Hyclate) 100 Mg Capsule 100 MG PO BID Infection #7 Ref 0 CAP (This prescription has been renewed) Hydrocodone Bit/Acetaminophen ([place] 10mg/325mg) 1 Ea Tab 1-2 TAB PO Q6H PRN PAIN Ref 0 TAB Losartan Potassium (Losartan Potassium) 100 Mg Tablet 100 MG PO DAILY TAB Morphine Sulfate (MS Contin) 30 Mg Tablet.er 30 MG PO TID TAB Discontinued Medications: Prednisone (Prednisone) 20 Mg Tablet 20 MG PO UD Inflammation Ref 0 TAB Follow up New Orders: CXR (CHEST PA/LAT (2 VIEW)* - 06/15/16 Discharge Diagnosis See list above. Problems: Copies to: End of Report . BERNABE CABRERA MD Jun 07, 2016 08:31
--- NOTE | 2016-06-29 14:28 | OT Therapy Evaluation (E) ---
Discharge Summary Service Date/Time 06/29/16, 14:25 Primary Diagnosis: (1) Chronic obstructive pulmonary disease ICD Code: J44.9 (2) URI (upper respiratory infection) ICD Code: J06.9 Treatment Diagnosis: (1) Weakness ICD Code: R53.1 Onset Date: 05/31/16 Start of Care Date: Jun 05, 2016 Summary of Discharge Therapy Comments Pt was seen for one occupational therapy visit following initial evaluation. Educated on energy conservation techniques, including diaphragmatic breathing to ease shortness of breath. Discussed modifications in ways to complete self care tasks to conserve energy and increase safety. Short Term Goals/Status Will Dress Upper Extremity: Independently (GOAL MET.) Will Dress Lower Extremity: With Setup/SBA (PROGRESS. CGA when putting on pants in standing. Educated on sitting down to thread pants. ) Will Do Bathing: With Setup/SBA (NOT ASSESSED. ) Will do Toileting: With Setup/SBA (NOT ASSESSED.) STG #1 Pt will participate in 15 min of ther-ex with use of energy conservation techniques as needed. GOAL MET. Snf Goals/ Status Will Dress Upper Extremity: Independently (NOT MET.) Will Dress Lower Extremity: Independently (NOT MET.) Will do Tub/Shower Transfer: With Setup/SBA (NOT MET.) Will Bathe Self: Independently (NOT MET.) Will do Toilet Transfers: Independently (NOT MET.) Will do Toilieting: Independently (NOT MET.) Discharge Recommendations: Home w/ Family Support JOSEPH ARANA OT Jun 29, 2016 14:28
--- NOTE | 2016-08-04 15:50 | Physical Therapy Evaluation(E) ---
Discharge Summary Service Date/Time 08/04/16, 15:43 Primary Diagnosis: (1) Chronic obstructive pulmonary disease ICD Code: J44.9 (2) URI (upper respiratory infection) ICD Code: J06.9 Treatment Diagnosis: (1) Chronic obstructive pulmonary disease ICD Code: J44.9 Onset Date: 05/31/2016 Start of Service Date: Jun 02, 2016 Summary of Progress Summary Comment The patient was treated in physical therapy from 06/02/2016 -06/06/2016. The patient demonstrated improving activity tolerance being able to ambulate 300 feet followed by additional 150 feet. He continues to have impaired activity tolerance overall. Distance Walked in Feet 300 feet on room air Assistive Device: None Assist: Independent Gait Description: Normal:No Sig. Deviation Gait Limitations: SOB, Fatigue Transfer STG and Status Rolling: Modified Gary Goal Status at Discharge: Goal Met Sit-Supine: Modified [place] Goal Status at Discharge: Goal Met Sitting Edge of Bed: Modified [place] Goal Status at Discharge: Goal Met Supine-Sit: Modified [place] Goal Status at Discharge: Goal Met Sit-Stand from bed: Modified [place] Goal Status at Discharge: Goal Met Stand-Sit: Modified [place] Goal Status at Discharge: Goal Met Ambulation: Modified [place] Goal Status at Discharge: Goal Met Distance Walked: 300 feet. Transfer LTG and Status Ambulation: Complete [place] Goal Status at Discharge: Goal Met Discharge Recommendations: TCU/Skilled NH Service Recommendations: DC Services (P) Rationale for Recommendations The patient would benefit from additional therapy services however per PT's understanding he has declined skilled rehabilitation. ZACH ARAGON PT Aug 04, 2016 15:50
== END 2016-06-06 12:42 | disposition home or self-care (01) | DRG 189 ==
LOC: ED 02:53 → MED/SURG 05:06 → OBSVTOIN 06-02 11:04
PROVIDERS: ADMIT Family Medicine; ATTEND Family Medicine
DX: J96.01 Acute respiratory failure with hypoxia (principal); J44.1 Chronic obstructive pulmonary disease with (acute) exacerbation; E87.1 Hypo-osmolality and hyponatremia; I50.42 Chronic combined systolic (congestive) and diastolic (congestive) heart failure; J06.9 Acute upper respiratory infection, unspecified; I11.0 Hypertensive heart disease with heart failure; B97.4 Respiratory syncytial virus as the cause of diseases classified elsewhere; G89.29 Other chronic pain; M54.9 Dorsalgia, unspecified; F41.8 Other specified anxiety disorders; F17.210 Nicotine dependence, cigarettes, uncomplicated
CPT/HCPCS: 36415; 71010; 80053; 80069; 83735; 83880; 84484; 85025; 85610; 87486; 87581; 87633; 87798; 94640; 94760; 99284

== ENCOUNTER → 2016-10-22 | Outpatient (CLI) | payer MEDICARE, OTHER ==
[~2016-10-22] MED LIST: ACHYD1T PO; ALB0.5V INH; ALBU8.5H2 IH; DOXY100C2 PO; GUAI120016 PO; IPRA3AMP11 INH; LOSA100T8 PO; MORP30TA PO; MORP30TA60 PO; PRCD5U PO; PRED20TA PO
--- NOTE | 2016-10-22 13:07 | Diagnostic Imaging Report ---
PROCEDURE: MRI left upper extremity without contrast. TECHNIQUE: Multiplanar, multisequence non contrast-enhanced MRI of the shoulder extremity was accomplished. INDICATION: Left shoulder pain with limited range of motion. COMPARISON: None available. FINDINGS: Severe/end-stage osteoarthritis of the glenohumeral joint characterized by diffuse full-thickness chondral loss, osseous remodeling of both the humeral head and glenoid. There is additionally subcortical cystic change and edema on both sides of the glenohumeral joint. Full-thickness tear of the subscapularis at its myotendinous junction. At least some of the subscapularis insertional fibers on the humeral head remain intact. The supraspinatus and infraspinatus tendons remain intact with mild disuse atrophy. There is more advanced fatty atrophy of the teres minor. Moderate atrophy of the subscapularis is present. Diffuse degenerative maceration of the glenoid labrum with multiple foci where the glenoid labrum is completely absent from degenerative tearing. There is a large glenohumeral joint effusion, which includes a large amount of fluid distending the subcoracoid bursa via the full-thickness tearing in the subscapularis. Extensive synovitis is present throughout the glenohumeral joint. Long head of the biceps is absent from its normal position and is chronically ruptured. No significant degenerative changes of the acromioclavicular joint. IMPRESSION: 1. Severe/end-stage osteoarthritis of the glenohumeral joint. Diffuse full-thickness chondromalacia and extensive osseous remodeling of the glenoid and humeral head. 2. Full-thickness tear of the subscapularis at its myotendinous junction. There is moderate fatty atrophy of the subscapularis muscle belly. 3. Supraspinatus and infraspinatus remain intact with mild atrophy. 4. 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 5. Expected diffuse degenerative macerated tearing of the glenoid labrum. Dictated by: Dictated on workstation # [id number]
== END ==
LOC: RAD 08:57
PROVIDERS: ATTEND Family Medicine
DX: M25.512 Pain in left shoulder (principal); M19.012 Primary osteoarthritis, left shoulder
CPT/HCPCS: 73221